=== PATIENT | male | born 1975 | race American Indian/Alaskan Native ===

== ENCOUNTER 2019-04-04 13:43 | Inpatient (IN) | payer SELFPAY ==
[2019-04-04] MEDS ORDERED: NACL 0.9% 1000 ML 1,000 ML IV ONE (13:48)
[2019-04-04] MEDS ORDERED: REGLAN IV ONE (13:48)
--- NOTE | 2019-04-04 13:52 | Event Note ---
ED Screening Note Date of service: 04/04/19 Time: 13:48 ED Screening Note: 44 y o male presents with n/v /d todays drank yesterday from tailgating This initial assessment/diagnostic orders/clinical plan/treatment(s) is/are subject to change based on patients health status, clinical progression and re- assessment by fellow clinical providers in the ED. Further treatment and workup at subsequent clinical providers discretion. Patient/guardian urged not to elope from the ED as their condition may be serious if not clinically assessed and managed. Initial orders include: labs, ua
[2019-04-04] MEDS ORDERED: BENTYL IM ONE (14:00)
[2019-04-04] MEDS ORDERED: PEPCID IV ONE (14:00)
[2019-04-04 14:16] LABS: Hemoglobin 16.1 gm/dl (11.8-15.2); Mean Corpuscular HGB Conc 34 % (32-34); Mean Corpuscular Volume 87 fl (84-94); Platelet Count 189 K/mm3 (140-440); Red Blood Count 5.39 M/mm3 (3.65-5.03); Red Cell Distribution Width 13.9 % (13.2-15.2)
[2019-04-04 14:24] LABS: Bilirubin,Urine NEG (Negative); Blood,Urine NEG (Negative); Color,Urine Yellow (Yellow); Mucus,Urine FEW /HPF
[2019-04-04 14:30] LABS: Alanine Aminotransferase 38 units/L (7-56); Albumin 4.4 g/dL (3.9-5); BUN/Creatinine Ratio 12; Blood Urea Nitrogen 11 mg/dL (9-20); Calcium 9.4 mg/dL (8.4-10.2); Hemolysis Index 10
[2019-04-04 14:48] LABS: Band Neutrophils # (Manual) 0.6 K/mm3; Total Cells Counted 100
[2019-04-04 14:49] LABS: Anisocytosis Few; Basophils % (Manual) 0 % (0.0-1.8); Eosinophils % (Manual) 0 % (0.0-4.3)
--- NOTE | 2019-04-04 16:00 | Cat Scan Report ---
CT abdomen pelvis w con INDICATION: MAIN: R sided abd pain NVD X 2 DAYS ISOVUE 300 100ML PT UNABLE TO HOLD STILL . TECHNIQUE: All CT scans at this location are performed using CT dose reduction for ALARA by means of automated e xposure control. COMPARISON: None available. FINDINGS: Lung bases are clear. Gallbladder is moderately distended. Motion artifact obscures the neck, so I ca nnot exclude a small stone in this region. Questionable calculus in the fundus. There is definitely p ericholecystic edema. Liver, spleen, pancreas, kidneys and adrenals appear negative. Abdominal aorta is normal in size. Pelvis No free fluid or inflammatory change. No abnormal mass. Appendix cannot be identified. No acute skeletal lesions. IMPRESSION: Pericholecystic edema suggests cholecystitis, although gallstones are not clearly identified. Signer Name: Eusebio Hinojosa MD Signed: 04/04/2019 3:56 PM Workstation Name: [id number]
[2019-04-04] MEDS ORDERED: ZOSYN/NS 4.5GM/100ML 4.5 GM/100 ML VIAL IV ONE (16:11)
[2019-04-04] MEDS ORDERED: MORPHINE IV ONE (16:23)
--- NOTE | 2019-04-04 16:41 | Emergency Department Report ---
ED Abdominal Pain HPI - General Chief Complaint: Abdominal Pain Stated Complaint: STOMACH PAIN EXTREME Time Seen by Provider: 04/04/19 13:47 Source: patient Mode of arrival: Ambulatory Limitations: No Limitations - History of Present Illness Initial Comments: Patient is a 44 roughneck male who has a clean past medical history who states he started developing some severe right lower and right upper quadrant pain last night. Patient had multiple episodes of nausea vomiting and had one episode of diarrhea today. Patient states he has not had a subjective fever but has had some diaphoresis. Patient also had chills overnight. Patient states the pain is 10 out of 10 in severity and crampy in nature. Migration to: no migration Severity scale (0 -10): 7 - Related Data Allergies Allergy/AdvReac Type Severity Reaction Status Date / Time No Known Allergies Allergy Unverified 04/04/19 13:45 ED Review of Systems ROS: Stated complaint: STOMACH PAIN EXTREME Other details as noted in HPI Comment: All other systems reviewed and negative ED Past Medical Hx - Past Medical History Previous Medical History?: No - Surgical History Past Surgical History?: No - Social History Smoking Status: Current Every Day Smoker Substance Use Type: Alcohol ED Physical Exam - General Limitations: No Limitations General appearance: alert, in distress - Head Head exam: Present: atraumatic, normocephalic - Eye Eye exam: Present: normal appearance, PERRL, EOMI - ENT ENT exam: Present: mucous membranes moist - Neck Neck exam: Present: normal inspection - Respiratory Respiratory exam: Present: normal lung sounds bilaterally. Absent: respiratory distress, wheezes, rales, rhonchi - Cardiovascular Cardiovascular Exam: Present: regular rate, normal rhythm. Absent: systolic murmur, diastolic murmur, rubs, gallop - GI/Abdominal GI/Abdominal exam: Present: soft, tenderness (right upper and right lower quadrant), guarding, diminished bowel sounds. Absent: distended, rebound, rigid - Rectal Rectal exam: Present: deferred - Extremities Exam Extremities exam: Present: normal inspection - Back Exam Back exam: Present: normal inspection - Neurological Exam Neurological exam: Present: alert, oriented X3 - Psychiatric Psychiatric exam: Present: normal affect, normal mood - Skin Skin exam: Present: warm, dry, intact, normal color. Absent: rash ED Course Vital Signs 04/04/19 04/04/19 13:45 16:36 Temperature 98.4 F Pulse Rate 82 Respiratory 16 16 Rate Blood Pressure 119/53 O2 Sat by Pulse 100 Oximetry ED Medical Decision Making - Lab Data Result diagrams: 04/04/19 13:56 04/04/19 13:56 - Radiology Data Patient: GORDO BRIZUELA MR#: [id number] : 1975 Acct:[id number] Age/Sex: 44 / M ADM Date: 04/04/19 Loc: ED Attending Dr: Ordering Physician: AVILA MAYFIELD MD Date of Service: 04/04/19 Procedure(s): CT abdomen pelvis w con Accession Number(s): [id number] cc: AVILA MAYFIELD MD CT abdomen pelvis w con INDICATION: MAIN: R sided abd pain NVD X 2 DAYS ISOVUE 300 100ML PT UNABLE TO HOLD STILL . TECHNIQUE: All CT scans at this location are performed using CT dose reduction for ALARA by means of automated exposure control. COMPARISON: None available. FINDINGS: Lung bases are clear. Gallbladder is moderately distended. Motion artifact obscures the neck, so I cannot exclude a small stone in this region. Questionable calculus in the fundus. There is definitely pericholecystic edema. Liver, spleen, pancreas, kidneys and adrenals appear negative. Abdominal aorta is normal in size. Pelvis No free fluid or inflammatory change. No abnormal mass. Appendix cannot be identified. No acute skeletal lesions. IMPRESSION: Pericholecystic edema suggests cholecystitis, although gallstones are not clearly identified. Signer Name: Eusebio Hinojosa MD Signed: 04/04/2019 3:56 PM Workstation Name: [id number] Transcribed By: TM Dictated By: Eusebio Hinojosa MD Electronically Authenticated By: Eusebio Hinojosa MD Signed Date/Time: 04/04/19 8449 - Medical Decision Making Spoke with regarding the patient's CT findings. We both agree that doing ultrasound would be of benefit to determine the next course of action for this patient. Patient started on Zosyn and will be admitted to the hospitalist service. Patient's pain has improved as well as his nausea. Critical care attestation.: If time is entered above; I have spent that time in minutes in the direct care of this critically ill patient, excluding procedure time. ED Disposition Clinical Impression: Cholecystitis Disposition: OP ADMIT IP TO THIS HOSP Is pt being admited?: Yes Does the pt Need Aspirin: No Condition: Stable Referrals: PRIMARY CARE, [Primary Care Provider] - 3-5 Days Time of Disposition: 16:41
[2019-04-04] MEDS ORDERED: NACL 0.9% 1000 ML 1,000 ML IV SCH (17:00)
--- NOTE | 2019-04-04 19:15 | Ultrasound Report ---
ULTRASOUND ABDOMEN, LIMITED (RIGHT UPPER QUADRANT), 04/04/2019 INDICATION: Right upper quadrant pain. COMPARISON: CT of the abdomen and pelvis, 04/04/2019 FINDINGS: Pancreas: Visualized portion shows no significant abnormality. Liver: The liver appears grossly normal in size and echogenicity. Gallbladder: The gallbladder is mildly distended. There is a subtle hypoechoic rim surrounding the ga llbladder suggestive of possible gallbladder wall edema. The gallbladder measures a maximum thickness of 3 mm. The common bile duct is normal in caliber measuring less than 2 mm. There are 2 small stone s within the neck of the gallbladder the largest of which measures 9 mm. Free fluid: None. Additional Findings: None. IMPRESSION: 1. Two small gallstones. 2. Gallbladder distention with suspected subtle gallbladder wall edema suggesting the possibility of cholecystitis. Signer Name: Lavonne Alaniz MD Signed: 04/04/2019 7:10 PM Workstation Name: [id number]
[2019-04-04] MEDS ORDERED: ZOFRAN IV PRN (22:22)
[2019-04-04] MEDS ORDERED: REGLAN IV PRN (22:22)
--- NOTE | 2019-04-04 22:25 | History and Physical Report ---
History of Present Illness Date of examination: 04/04/19 Date of admission: 04/04/19 16:43 Chief complaint: RUQ pain for 1 day History of present illness: 44 y/o AAM male with no significant past medical history started developing some severe right lower and right upper quadrant pain last night. Patient had multiple episodes of nausea vomiting and had one episode of diarrhea today. Patient states he has not had a subjective fever but has had some diaphoresis. Patient also had chills overnight. Patient states the pain is 10 out of 10 in severity and crampy in nature.No exacerbating or relieving factors. Past Medical History None Surgical History None Social History Smoking Status: Current Every Day Smoker Substance Use Type: Alcohol Family history Htn Review of Systems ROS: Stated complaint: STOMACH PAIN EXTREME Other details as noted in HPI Comment: All other systems reviewed and negative Medications and Allergies Allergies Allergy/AdvReac Type Severity Reaction Status Date / Time No Known Allergies Allergy Unverified 04/04/19 13:45 Home Medications Medication Instructions Recorded Confirmed Last Taken Type No Known Home Medications [No 04/04/19 04/04/19 Unknown History Reported Home Medications] Active Meds: Active Medications Sodium Chloride (Nacl 0.9% 1000 Ml) 1,000 mls @ 125 mls/hr IV DIRECT YAMILA Exam - Constitutional Vitals: Temp Pulse Resp BP Pulse Ox 99.7 F H 76 18 112/69 99 04/04/19 19:45 04/04/19 19:45 04/04/19 19:45 04/04/19 19:45 04/04/19 19:45 General appearance: Present: no acute distress, well-nourished - EENT Eyes: Present: PERRL ENT: hearing intact, clear oral mucosa - Neck Neck: Present: supple, normal ROM - Respiratory Respiratory effort: normal Respiratory: bilateral: CTA - Cardiovascular Heart rate: 78 Rhythm: regular Heart Sounds: Present: S1 & S2. Absent: rub, click - Extremities Extremities: no ischemia, pulses symmetrical, No edema Peripheral Pulses: within normal limits - Abdominal General gastrointestinal: Present: soft, tender, non-distended, normal bowel sounds Localized gastrointestinal: tender: RUQ, guarding: RUQ, rebound: RUQ Male genitourinary: Present: normal - Rectal Rectal Exam: deferred - Integumentary Integumentary: Present: clear, warm, dry - Musculoskeletal Musculoskeletal: gait normal, strength equal bilaterally - Psychiatric Psychiatric: appropriate mood/affect, intact judgment & insight - Neurologic Neurologic: CNII-XII intact, moves all extremities - Allied Health Allied health notes reviewed: nursing, case management Results - Labs CBC & Chem 7: 04/05/19 04:10 04/05/19 Unknown Labs: Laboratory Last Values WBC 11.8 K/mm3 (4.5-11.0) H 04/04/19 13:56 RBC 5.39 M/mm3 (3.65-5.03) H 04/04/19 13:56 Hgb 16.1 gm/dl (11.8-15.2) H 04/04/19 13:56 Hct 47.0 % (35.5-45.6) H 04/04/19 13:56 MCV 87 fl (84-94) 04/04/19 13:56 MCH 30 pg (28-32) 04/04/19 13:56 MCHC 34 % (32-34) 04/04/19 13:56 RDW 13.9 % (13.2-15.2) 04/04/19 13:56 Plt Count 189 K/mm3 (140-440) 04/04/19 13:56 Add Manual Diff Complete 04/04/19 13:56 Total Counted 100 04/04/19 13:56 Seg Neutrophils % [employer] 04/04/19 13:56 Seg Neuts % (Manual) 84.0 % (40.0-70.0) H 04/04/19 13:56 5.0 % 04/04/19 13:56 7.0 % (13.4-35.0) L 04/04/19 13:56 Reactive Lymphs % (Man) 0 % 04/04/19 13:56 4.0 % (0.0-7.3) 04/04/19 13:56 0 % (0.0-4.3) 04/04/19 13:56 0 % (0.0-1.8) 04/04/19 13:56 0 % 04/04/19 13:56 0 % 04/04/19 13:56 0 % 04/04/19 13:56 0 % 04/04/19 13:56 Nucleated RBC % Not Reportable 04/04/19 13:56 Seg Neutrophils # Man 9.9 K/mm3 (1.8-7.7) H 04/04/19 13:56 Band Neutrophils # 0.6 K/mm3 04/04/19 13:56 0.8 K/mm3 (1.2-5.4) L 04/04/19 13:56 Abs React Lymphs (Man) 0.0 K/mm3 04/04/19 13:56 0.5 K/mm3 (0.0-0.8) 04/04/19 13:56 0.0 K/mm3 (0.0-0.4) 04/04/19 13:56 0.0 K/mm3 (0.0-0.1) 04/04/19 13:56 0.0 K/mm3 04/04/19 13:56 0.0 K/mm3 04/04/19 13:56 0.0 K/mm3 04/04/19 13:56 Blast Cells # 0.0 K/mm3 04/04/19 13:56 WBC Morphology Not Reportable 04/04/19 13:56 WBC Morphology TNR 04/04/19 13:56 Hypersegmented Neuts Not Reportable 04/04/19 13:56 Hyposegmented Neuts Not Reportable 04/04/19 13:56 Hypogranular Neuts Not Reportable 04/04/19 13:56 Not Reportable 04/04/19 13:56 Not Reportable 04/04/19 13:56 Not Reportable 04/04/19 13:56 Not Reportable 04/04/19 13:56 Not Reportable 04/04/19 13:56 Not Reportable 04/04/19 13:56 Not Reportable 04/04/19 13:56 Not Reportable 04/04/19 13:56 Plt Clumps, EDTA Not Reportable 04/04/19 13:56 Not Reportable 04/04/19 13:56 Not Reportable 04/04/19 13:56 Not Reportable 04/04/19 13:56 Plt Morphology Comment Not Reportable 04/04/19 13:56 RBC Morphology Not Reportable 04/04/19 13:56 Dimorphic RBCs Not Reportable 04/04/19 13:56 Not Reportable 04/04/19 13:56 Not Reportable 04/04/19 13:56 Not Reportable 04/04/19 13:56 Few 04/04/19 13:56 Not Reportable 04/04/19 13:56 Not Reportable 04/04/19 13:56 Not Reportable 04/04/19 13:56 Not Reportable 04/04/19 13:56 Not Reportable 04/04/19 13:56 Not Reportable 04/04/19 13:56 Not Reportable 04/04/19 13:56 Not Reportable 04/04/19 13:56 Not Reportable 04/04/19 13:56 Not Reportable 04/04/19 13:56 Not Reportable 04/04/19 13:56 Not Reportable 04/04/19 13:56 Not Reportable 04/04/19 13:56 Not Reportable 04/04/19 13:56 Not Reportable 04/04/19 13:56 Acanthocytes (Spur) Not Reportable 04/04/19 13:56 Rouleaux Not Reportable 04/04/19 13:56 Not Reportable 04/04/19 13:56 Not Reportable 04/04/19 13:56 Not Reportable 04/04/19 13:56 Not Reportable 04/04/19 13:56 Hem Pathologist Commnt No 04/04/19 13:56 Sodium 138 mmol/L (137-145) 04/04/19 13:56 Potassium 3.9 mmol/L (3.6-5.0) 04/04/19 13:56 Chloride 98.2 mmol/L (98-107) 04/04/19 13:56 Carbon Dioxide 25 mmol/L (22-30) 04/04/19 13:56 19 mmol/L 04/04/19 13:56 BUN 11 mg/dL (9-20) 04/04/19 13:56 0.9 mg/dL (0.8-1.5) 04/04/19 13:56 Estimated GFR > 60 ml/min 04/04/19 13:56 12 % 04/04/19 13:56 Glucose 119 mg/dL (75-100) H 04/04/19 13:56 Calcium 9.4 mg/dL (8.4-10.2) 04/04/19 13:56 0.80 mg/dL (0.1-1.2) 04/04/19 13:56 AST 43 units/L (5-40) H 04/04/19 13:56 ALT 38 units/L (7-56) 04/04/19 13:56 78 units/L (35-129) 04/04/19 13:56 7.4 g/dL (6.3-8.2) 04/04/19 13:56 4.4 g/dL (3.9-5) 04/04/19 13:56 1.5 % 04/04/19 13:56 Amylase 66 units/L (27-131) 04/04/19 13:56 22 units/L (13-60) 04/04/19 13:56 Yellow (Yellow) 04/04/19 13:56 Clear (Clear) 04/04/19 13:56 9.0 (5.0-7.0) H 04/04/19 13:56 Ur Specific [place] 1.024 (1.003-1.030) 04/04/19 13:56 100 mg/dl mg/dL (Negative) 04/04/19 13:56 Neg mg/dL (Negative) 04/04/19 13:56 80 mg/dL (Negative) 04/04/19 13:56 Neg (Negative) 04/04/19 13:56 Neg (Negative) 04/04/19 13:56 Neg (Negative) 04/04/19 13:56 2.0 mg/dL (<2.0) 04/04/19 13:56 Ur Leukocyte Esterase Neg (Negative) 04/04/19 13:56 1.0 /HPF (0.0-6.0) 04/04/19 13:56 6.0 /HPF (0.0-6.0) 04/04/19 13:56 U Epithel Cells (Auto) < 1.0 /HPF (0-13.0) 04/04/19 13:56 Few /HPF 04/04/19 13:56 Plasma/Serum Alcohol < 0.01 % (0-0.07) 04/04/19 13:56 - Imaging and Cardiology EKG: report reviewed CT scan - abdomen: report reviewed Imaging and Cardiology: ABD CT IMPRESSION: Pericholecystic edema suggests cholecystitis, although gallstones are not clearly identified. RUQ U/S IMPRESSION: 1. Two small gallstones. 2. Gallbladder distention with suspected subtle gallbladder wall edema suggesting the possibility of cholecystitis Assessment and Plan Advance Directives: Yes (Full code ) VTE prophylaxis?: Chemical Plan of care discussed with patient/family: Yes - Patient Problems (1) Cholecystitis Current Visit: Yes Status: Acute Plan to address problem: Surgery consult requested IV zosyn initiated Pain control initiated (2) Nicotine dependence Current Visit: Yes Status: Chronic Qualifiers: Nicotine product type: cigarettes Plan to address problem: Initiated on Nicoderm patch Counselled about cessation of smoking (3) DVT prophylaxis Current Visit: Yes Status: Acute Plan to address problem: On SCD's and GI prophylaxis
[2019-04-04] MEDS: PEPCID IV SCH (23:20)
[2019-04-04] MEDS: D5NS 1,000 ML IV SCH (23:29)
[2019-04-04] MEDS: ZOSYN/NS 4.5GM/100ML 4.5 GM/100 ML VIAL IV SCH (23:29)
[2019-04-04] MEDS: DILAUDID IV PRN (23:47)
[2019-04-04] MEDS: TYLENOL PO PRN (23:56)
[2019-04-05] MEDS: DILAUDID IV PRN ×5 (04:26→21:14)
[2019-04-05 04:38] LABS: Basophils # (Auto) 0.1 K/mm3 (0.0-0.1); Basophils % (Auto) 0.8 % (0.0-1.8); Eosinophils % (Auto) 0.3 % (0.0-4.3); Hematocrit 44.7 % (35.5-45.6); Hemoglobin 14.9 gm/dl (11.8-15.2); Lymphocytes # (Auto) 1.2 K/mm3 (1.2-5.4); Lymphocytes % (Auto) 10.1 % (13.4-35.0); Mean Corpuscular HGB Conc 33 % (32-34); Mean Corpuscular Volume 88 fl (84-94); Monocytes # (Auto) 0.8 K/mm3 (0.0-0.8); Monocytes % (Auto) 6.6 % (0.0-7.3); Platelet Count 172 K/mm3 (140-440); Red Blood Count 5.07 M/mm3 (3.65-5.03); Red Cell Distribution Width 14.1 % (13.2-15.2)
[2019-04-05 04:52] LABS: Alanine Aminotransferase 33 units/L (7-56); Albumin 3.9 g/dL (3.9-5); BUN/Creatinine Ratio 11; Blood Urea Nitrogen 11 mg/dL (9-20); Hemolysis Index 8
[2019-04-05] MEDS: ZOSYN/NS 4.5GM/100ML 4.5 GM/100 ML VIAL IV SCH ×2 (08:55→16:39)
[2019-04-05] MEDS: PEPCID IV SCH ×2 (10:39→21:14)
--- NOTE | 2019-04-05 11:28 | Progress Note ---
Assessment and Plan Assessment and plan: 44-year-old man who presents to the hospital with right upper quadrant pain CT abdomen and pelvis 2 small gallstones with subtotal gallbladder wall edema concerning for cholecystitis Abdominal pain, possible cholecystitis Discussed with general surgeon, patient plan for HIDA scan in a.m. Nicotine dependence and abuse Smoking cessation counseling performed for 11 minutes, nicotine patches as needed Preventive health counseling performed for 17 minutes for History Interval history: Right upper quadrant pain is improved, patient reports feeling hot. Denies fevers. Denies chest pain. Denies nausea or vomiting. Hospitalist Physical - Physical exam Narrative exam: General.: Appears well, no distress, nontoxic HEENT: Moist mucous membranes, extraocular muscles intact, no lymphadenopathy Neck: supple Cardiac: S1-S2 heard Lungs: clear to auscultation bilaterally Abdomen: soft right upper quadrant tender, nondistended, bowel sounds positive Extremities: no edema clubbing or cyanosis Skin: no rash or lesions Neurologic: no gross focal deficits Psych: calm, and cooperative - Constitutional Vitals: Temp Pulse Resp BP Pulse Ox 99.8 F H 72 18 109/68 98 04/05/19 07:06 04/05/19 07:06 04/05/19 07:06 04/05/19 07:06 04/05/19 07:06 General appearance: Present: no acute distress, well-nourished Results - Labs CBC & Chem 7: 04/05/19 04:10 04/05/19 Unknown Labs: Laboratory Last Values WBC 12.3 K/mm3 (4.5-11.0) H 04/05/19 04:10 RBC 5.07 M/mm3 (3.65-5.03) H 04/05/19 04:10 Hgb 14.9 gm/dl (11.8-15.2) 04/05/19 04:10 Hct 44.7 % (35.5-45.6) 04/05/19 04:10 MCV 88 fl (84-94) 04/05/19 04:10 MCH 29 pg (28-32) 04/05/19 04:10 MCHC 33 % (32-34) 04/05/19 04:10 RDW 14.1 % (13.2-15.2) 04/05/19 04:10 Plt Count 172 K/mm3 (140-440) 04/05/19 04:10 Lymph % (Auto) 10.1 % (13.4-35.0) L 04/05/19 04:10 [place] % (Auto) 6.6 % (0.0-7.3) 04/05/19 04:10 Eos % (Auto) 0.3 % (0.0-4.3) 04/05/19 04:10 Baso % (Auto) 0.8 % (0.0-1.8) 04/05/19 04:10 Lymph # 1.2 K/mm3 (1.2-5.4) 04/05/19 04:10 [place] # 0.8 K/mm3 (0.0-0.8) 04/05/19 04:10 Eos # 0.0 K/mm3 (0.0-0.4) 04/05/19 04:10 Baso # 0.1 K/mm3 (0.0-0.1) 04/05/19 04:10 Add Manual Diff Complete 04/04/19 13:56 Total Counted 100 04/04/19 13:56 Seg Neutrophils % 82.2 % (40.0-70.0) H 04/05/19 04:10 Seg Neuts % (Manual) 84.0 % (40.0-70.0) H 04/04/19 13:56 5.0 % 04/04/19 13:56 7.0 % (13.4-35.0) L 04/04/19 13:56 Reactive Lymphs % (Man) 0 % 04/04/19 13:56 4.0 % (0.0-7.3) 04/04/19 13:56 0 % (0.0-4.3) 04/04/19 13:56 0 % (0.0-1.8) 04/04/19 13:56 0 % 04/04/19 13:56 0 % 04/04/19 13:56 0 % 04/04/19 13:56 0 % 04/04/19 13:56 Nucleated RBC % Not Reportable 04/04/19 13:56 Seg Neutrophils # 10.1 K/mm3 (1.8-7.7) H 04/05/19 04:10 Seg Neutrophils # Man 9.9 K/mm3 (1.8-7.7) H 04/04/19 13:56 Band Neutrophils # 0.6 K/mm3 04/04/19 13:56 0.8 K/mm3 (1.2-5.4) L 04/04/19 13:56 Abs React Lymphs (Man) 0.0 K/mm3 04/04/19 13:56 0.5 K/mm3 (0.0-0.8) 04/04/19 13:56 0.0 K/mm3 (0.0-0.4) 04/04/19 13:56 0.0 K/mm3 (0.0-0.1) 04/04/19 13:56 0.0 K/mm3 04/04/19 13:56 0.0 K/mm3 04/04/19 13:56 0.0 K/mm3 04/04/19 13:56 Blast Cells # 0.0 K/mm3 04/04/19 13:56 WBC Morphology Not Reportable 04/04/19 13:56 WBC Morphology TNR 04/04/19 13:56 Hypersegmented Neuts Not Reportable 04/04/19 13:56 Hyposegmented Neuts Not Reportable 04/04/19 13:56 Hypogranular Neuts Not Reportable 04/04/19 13:56 Not Reportable 04/04/19 13:56 Not Reportable 04/04/19 13:56 Not Reportable 04/04/19 13:56 Not Reportable 04/04/19 13:56 Not Reportable 04/04/19 13:56 Not Reportable 04/04/19 13:56 Not Reportable 04/04/19 13:56 Not Reportable 04/04/19 13:56 Plt Clumps, EDTA Not Reportable 04/04/19 13:56 Not Reportable 04/04/19 13:56 Not Reportable 04/04/19 13:56 Not Reportable 04/04/19 13:56 Plt Morphology Comment Not Reportable 04/04/19 13:56 RBC Morphology Not Reportable 04/04/19 13:56 Dimorphic RBCs Not Reportable 04/04/19 13:56 Not Reportable 04/04/19 13:56 Not Reportable 04/04/19 13:56 Not Reportable 04/04/19 13:56 Few 04/04/19 13:56 Not Reportable 04/04/19 13:56 Not Reportable 04/04/19 13:56 Not Reportable 04/04/19 13:56 Not Reportable 04/04/19 13:56 Not Reportable 04/04/19 13:56 Not Reportable 04/04/19 13:56 Not Reportable 04/04/19 13:56 Not Reportable 04/04/19 13:56 Not Reportable 04/04/19 13:56 Not Reportable 04/04/19 13:56 Not Reportable 04/04/19 13:56 Not Reportable 04/04/19 13:56 Not Reportable 04/04/19 13:56 Not Reportable 04/04/19 13:56 Not Reportable 04/04/19 13:56 Acanthocytes (Spur) Not Reportable 04/04/19 13:56 Rouleaux Not Reportable 04/04/19 13:56 Not Reportable 04/04/19 13:56 Not Reportable 04/04/19 13:56 Not Reportable 04/04/19 13:56 Not Reportable 04/04/19 13:56 Hem Pathologist Commnt No 04/04/19 13:56 Sodium 140 mmol/L (137-145) 04/05/19 Unknown Potassium 4.5 mmol/L (3.6-5.0) 04/05/19 Unknown Chloride 100.8 mmol/L (98-107) 04/05/19 Unknown Carbon Dioxide 29 mmol/L (22-30) 04/05/19 Unknown 15 mmol/L 04/05/19 Unknown BUN 11 mg/dL (9-20) 04/05/19 Unknown 1.0 mg/dL (0.8-1.5) 04/05/19 Unknown Estimated GFR > 60 ml/min 04/05/19 Unknown 11 % 04/05/19 Unknown Glucose 123 mg/dL (75-100) H 04/05/19 Unknown 5.4 % (4-6) 04/05/19 04:10 Calcium 9.0 mg/dL (8.4-10.2) 04/05/19 Unknown 0.90 mg/dL (0.1-1.2) 04/05/19 Unknown AST 39 units/L (5-40) 04/05/19 Unknown ALT 33 units/L (7-56) 04/05/19 Unknown 76 units/L (35-129) 04/05/19 Unknown 6.8 g/dL (6.3-8.2) 04/05/19 Unknown 3.9 g/dL (3.9-5) 04/05/19 Unknown 1.3 % 04/05/19 Unknown Amylase 66 units/L (27-131) 04/04/19 13:56 22 units/L (13-60) 04/04/19 13:56 Yellow (Yellow) 04/04/19 13:56 Clear (Clear) 04/04/19 13:56 9.0 (5.0-7.0) H 04/04/19 13:56 Ur Specific [place] 1.024 (1.003-1.030) 04/04/19 13:56 100 mg/dl mg/dL (Negative) 04/04/19 13:56 Neg mg/dL (Negative) 04/04/19 13:56 80 mg/dL (Negative) 04/04/19 13:56 Neg (Negative) 04/04/19 13:56 Neg (Negative) 04/04/19 13:56 Neg (Negative) 04/04/19 13:56 2.0 mg/dL (<2.0) 04/04/19 13:56 Ur Leukocyte Esterase Neg (Negative) 04/04/19 13:56 1.0 /HPF (0.0-6.0) 04/04/19 13:56 6.0 /HPF (0.0-6.0) 04/04/19 13:56 U Epithel Cells (Auto) < 1.0 /HPF (0-13.0) 04/04/19 13:56 Few /HPF 04/04/19 13:56 Plasma/Serum Alcohol < 0.01 % (0-0.07) 04/04/19 13:56 Active Medications - Current Medications Current Medications: Generic Name Dose Route Start Last Admin Trade Name Freq PRN Reason Stop Dose Admin Acetaminophen 650 mg 04/04/19 22:22 04/04/19 23:56 Tylenol PO 650 mg Q4H PRN Administration Pain MILD(1-3)/Fever >100.5/ESPINOZA Famotidine 20 mg 04/04/19 23:00 04/04/19 23:20 Pepcid IV 20 mg BID YAMILA Administration Hydromorphone HCl 1 mg 04/04/19 22:22 04/05/19 08:53 Dilaudid IV 1 mg Q3H PRN Administration Pain , Severe (7-10) Dextrose/Sodium Chloride 1,000 mls @ 75 mls/hr 04/04/19 23:00 04/04/19 23:29 D5ns IV 75 mls/hr DIRECT YAMILA Administration Piperacillin Sod/Tazobactam Sod 4.5 gm in 100 mls @ 200 mls/hr 04/05/19 00:00 04/05/19 08:55 Zosyn/Ns 4.5gm/100ml IV 200 mls/hr Q8H YAMILA Administration Protocol Metoclopramide HCl 10 mg 04/04/19 22:22 04/05/19 04:25 Reglan IV 10 mg Q6H PRN Administration Nausea And Vomiting Ondansetron HCl 4 mg 04/04/19 22:22 04/04/19 23:46 Zofran IV 4 mg Q3H PRN Administration Nausea And Vomiting Sodium Chloride 10 ml 04/05/19 10:00 Sodium Chloride Flush Syringe 10 Ml IV BID YAMILA Sodium Chloride 10 ml 04/04/19 22:22 Sodium Chloride Flush Syringe 10 Ml IV PRN PRN LINE FLUSH
[2019-04-05] MEDS: HABITROL TD SCH (11:56)
--- NOTE | 2019-04-05 13:11 | Progress Note ---
Assessment and Plan Full consult dictated: 44 y/o alcoholic male c/o RUQ and RLQ abd pain x 3 days. +N&V Abd - RUQ and R flank tenderness GB US & CT report as below. also ascites noted on review with radiologist US IMPRESSION: 1. Two small gallstones. 2. Gallbladder distention with suspected subtle gallbladder wall edema suggesting the possibility of cholecystitis. CT IMPRESSION: Pericholecystic edema suggests cholecystitis, although gallstones are not clearly identified. imp - r/o cholecystitis alcoholic ascites secondary to ? rec NPO IV Levaquin will attempt to reduce inflammation with IV antibiotic Rx prior to attempting lap GB to reduce possibility of having to convert to open GB and reduce complication rates. f/u labs in am Laboratory Tests 04/04/19 04/05/19 04/05/19 13:56 04:10 Unknown WBC 12.3 H Total Bilirubin 0.90 AST 39 ALT 33 Alkaline Phosphatase 76 Amylase 66 Lipase 22 Objective Vital Signs - 12hr 04/05/19 04/05/19 04/05/19 04:50 04:51 07:06 Temperature 99.4 F 99.8 F H Pulse Rate 75 72 Respiratory 20 18 Rate Blood Pressure 95/56 109/68 O2 Sat by Pulse 94 98 Oximetry 04/05/19 11:14 Temperature 97.3 F L Pulse Rate 81 Respiratory 18 Rate Blood Pressure 114/73 O2 Sat by Pulse 87 Oximetry - Labs 04/05/19 04:10 04/05/19 Unknown Diabetes panel 04/04/19 04/05/19 04/05/19 Range/Units 13:56 04:10 Unknown Sodium 138 140 (137-145) mmol/L Potassium 3.9 4.5 (3.6-5.0) mmol/L Chloride 98.2 100.8 (98-107) mmol/L Carbon Dioxide 25 29 (22-30) mmol/L BUN 11 11 (9-20) mg/dL Creatinine 0.9 1.0 (0.8-1.5) mg/dL Glucose 119 H 123 H (75-100) mg/dL Hemoglobin A1c 5.4 (4-6) % Calcium 9.4 9.0 (8.4-10.2) mg/dL AST 43 H 39 (5-40) units/L ALT 38 33 (7-56) units/L Alkaline Phosphatase 78 76 (35-129) units/L Total Protein 7.4 6.8 (6.3-8.2) g/dL Albumin 4.4 3.9 (3.9-5) g/dL Calcium panel 04/04/19 04/05/19 Range/Units 13:56 Unknown Calcium 9.4 9.0 (8.4-10.2) mg/dL Albumin 4.4 3.9 (3.9-5) g/dL Pituitary panel 04/04/19 04/05/19 Range/Units 13:56 Unknown Sodium 138 140 (137-145) mmol/L Potassium 3.9 4.5 (3.6-5.0) mmol/L Chloride 98.2 100.8 (98-107) mmol/L Carbon Dioxide 25 29 (22-30) mmol/L BUN 11 11 (9-20) mg/dL Creatinine 0.9 1.0 (0.8-1.5) mg/dL Glucose 119 H 123 H (75-100) mg/dL Calcium 9.4 9.0 (8.4-10.2) mg/dL Adrenal panel 04/04/19 04/05/19 Range/Units 13:56 Unknown Sodium 138 140 (137-145) mmol/L Potassium 3.9 4.5 (3.6-5.0) mmol/L Chloride 98.2 100.8 (98-107) mmol/L Carbon Dioxide 25 29 (22-30) mmol/L BUN 11 11 (9-20) mg/dL Creatinine 0.9 1.0 (0.8-1.5) mg/dL Glucose 119 H 123 H (75-100) mg/dL Calcium 9.4 9.0 (8.4-10.2) mg/dL Total Bilirubin 0.80 0.90 (0.1-1.2) mg/dL AST 43 H 39 (5-40) units/L ALT 38 33 (7-56) units/L Alkaline Phosphatase 78 76 (35-129) units/L Total Protein 7.4 6.8 (6.3-8.2) g/dL Albumin 4.4 3.9 (3.9-5) g/dL
[2019-04-05] MEDS: LEVAQUIN 500MG/100ML 500 MG/100 ML BAG IV SCH (14:37)
[2019-04-05] MEDS ORDERED: ATIVAN PO PRN (17:08)
[2019-04-05] MEDS ORDERED: ATIVAN IV PRN ×2 (17:08)
--- NOTE | 2019-04-06 00:39 | Consultation ---
REASON FOR CONSULTATION: Rule out acute cholecystitis. HISTORY OF PRESENT ILLNESS: The patient is a 44-year-old gentleman who was admitted to the Emergency Room with a recent onset of right upper quadrant as well as right lower quadrant abdominal pain, which the patient describes, has been going on for approximately 3 days. Also, has had episodes of nausea and vomiting. PAST MEDICAL HISTORY: Negative. PAST SURGICAL HISTORY: Negative. ALLERGIES: No known allergies. MEDICATIONS: No medications. FAMILY HISTORY: Negative. SOCIAL HISTORY: Admits to drinking daily. Also, smokes a pack a day for approximately 30 years. PHYSICAL EXAMINATION: GENERAL: At this time reveals the patient to be sitting by bedside, awake, alert, cooperative, in no acute distress. VITAL SIGNS: Show him to be afebrile with a temperature of 97.3, blood pressure is 114/73, pulse of 81, respirations of 18. HEENT: Pupils are equal and reactive to light and accommodation. Sclerae are nonicteric. ABDOMEN: Examination of the abdomen reveals to be flat and soft. There is mild right upper quadrant tenderness as well as right lower quadrant and some flank tenderness, which is nonspecific. Bowel sounds are present. LABORATORY DATA: Lab work at present includes a CBC, which shows a white count of 12.3, H and H is 14.9 and 44.7. Electrolytes were essentially within normal limits. LFTs are also normal including a total bilirubin of 0.9, AST of 39, ALT of 33, alkaline phosphatase of 76. Amylase is normal at 66. Lipase is also normal at 22. A gallbladder ultrasound as well as CT of the abdomen, I have been performed, which I have reviewed with the radiologist. The CT scan revealed some pericholecystic edema suggestive of cholecystitis, although gallstones were not clearly identified. Subsequent gallbladder ultrasound revealed two questionable small gallstones. There is edema films with radiologist, there does appear to be some ascites and that may be the reason for the questionable fluid or edema around the gallbladder wall. IMPRESSION: 1. At this time is that of a 44-year-old gentleman, a known alcoholic. 2. Rule out acute cholecystitis. RECOMMENDATIONS: At this time would be to keep the patient n.p.o. We will start IV Levaquin. We will also order a HIDA scan to confirm if indeed patient does have acute cholecystitis or there is another intraabdominal process causing his symptomatology. We will monitor closely with you clinically. Also, we will repeat lab work in the morning. JOB# [id number] CLARK/DEAN
[2019-04-06] MEDS: ZOSYN/NS 4.5GM/100ML 4.5 GM/100 ML VIAL IV SCH ×3 (05:00→16:53)
[2019-04-06 06:09] LABS: Basophils % (Auto) 0.3 % (0.0-1.8); Eosinophils # (Auto) 0.1 K/mm3 (0.0-0.4); Eosinophils % (Auto) 0.4 % (0.0-4.3); Hematocrit 40.8 % (35.5-45.6); Hemoglobin 13.8 gm/dl (11.8-15.2); Lymphocytes # (Auto) 1.1 K/mm3 (1.2-5.4); Lymphocytes % (Auto) 7.5 % (13.4-35.0); Mean Corpuscular HGB Conc 34 % (32-34); Mean Corpuscular Volume 88 fl (84-94); Monocytes # (Auto) 1.2 K/mm3 (0.0-0.8); Platelet Count 157 K/mm3 (140-440); Red Blood Count 4.65 M/mm3 (3.65-5.03)
[2019-04-06] MEDS: TYLENOL PO PRN (06:14)
[2019-04-06] MEDS: SODIUM CHLORIDE FLUSH SYRINGE 10 ML IV PRN ×2 (06:17→22:08)
[2019-04-06 06:21] LABS: Alanine Aminotransferase 24 units/L (7-56); Albumin 3.4 g/dL (3.9-5); BUN/Creatinine Ratio 9; Blood Urea Nitrogen 8 mg/dL (9-20); Calcium 8.9 mg/dL (8.4-10.2); Hemolysis Index 5
[2019-04-06] MEDS: SODIUM CHLORIDE FLUSH SYRINGE 10 ML IV SCH ×2 (07:58→11:40)
--- NOTE | 2019-04-06 10:46 | Nuclear Medicine Report ---
NUCLEAR MEDICINE HEPATOBILIARY SCAN INDICATION: r/o acute GB. Right upper quadrant pain COMPARISON: Ultrasound and CT of the abdomen dated 04/04/2019. TECHNIQUE: Radiotracer: Tc-99m mebrofenin (by IV): 5 mCi. Gallbladder Stimulant: None. FINDINGS: Hepatic activity: Normal. Biliary activity: 5. Common bile duct activity at 10 minutes. Gallbladder activity: Not seen throughout 2 hours of imaging. Small bowel activity: Normal at 15 minutes. IMPRESSION: Nonvisualization of the gallbladder consistent with obstruction of the cystic duct.. Signer Name: Khoa Lew Jr, MD Signed: 04/06/2019 10:41 AM Workstation Name: [id number]
[2019-04-06] MEDS: DILAUDID IV PRN ×3 (11:27→22:07)
[2019-04-06] MEDS: PEPCID IV SCH ×2 (11:33→22:08)
[2019-04-06] MEDS: VITAMIN B-1 PO SCH (11:34)
[2019-04-06] MEDS: LEVAQUIN 500MG/100ML 500 MG/100 ML BAG IV SCH (11:35)
[2019-04-06] MEDS: FOLVITE PO SCH (11:35)
[2019-04-06] MEDS: HABITROL TD SCH (11:38)
[2019-04-06] MEDS: D5NS 1,000 ML IV SCH (11:40)
--- NOTE | 2019-04-06 12:48 | Event Note ---
Date: 04/06/19 Consulted for cholecystostomy tube. Discussed with Dr. Damon. The patient has no PMH, does have a history of alcohol consumption, and no CT or US evidence of complicated gallbladder. There is no indication for cholecystostomy tube. Cholecystostomy tube indications are due to the comorbidites of the patient, not the state of acute cholecystitis.
--- NOTE | 2019-04-06 12:54 | Progress Note ---
Assessment and Plan Assessment and plan: Patient is a 44 yo man with a history of tobacco dependency and alcohol abuse who presents with right upper abdominal pains. * CT abdomen and pelvis 2 small gallstones with subtotal gallbladder wall edema concerning for cholecystitis * HIDA scan, gb not visualized Abdominal pain, most likely Acute cholecystitis with Gallstones: Lap stanley is indicated before he gets septic or goes into alcohol withdrawals, continue IV abx, paged Dr. Damon, d/w IR, Dr. Bryant Nicotine dependence: aids counselor on cessation, nicotine patches as needed ETOH abuse: treat with CIWA protocol, aids counselor on stopping History Interval history: Patient was seen and examined. Follow-up on current diagnosis of Acute ch olecystitis. Overnight uneventful. Patient denies any chest pain, shortness breath, nausea/vomiting or severe headaches. Imaging, nursing note, chart, labs and old chart reviewed. Discussed with patient. Aunt at bedside Hospitalist Physical - Physical exam Narrative exam: Gen: WDWN, NAD, Awake, Alert, Orientated x 3 HEENT: NCAT, EOMI, PERRL, OP Clear Neck: supple, no adenopathy, no thyromegaly, no JVD CVS/Heart: RRR, normal S1S2, pulses present bilaterally Chest/Lungs: CTA B, Symmetrical chest expansion, good air entry bilaterally GI/Abdomen: not rigid, RUQ tenderness good bowel sounds, + guarding, rebound /Bladder: no suprapubic tenderness, no CVA or paraspinal tenderness Extermity/Skin: no c/c/e, no obvious rash MSK: FROM x 4 Neuro: CN 2-12 grossly intact, no new focal deficits Psych: calm - Constitutional Vitals: Temp Pulse Resp BP Pulse Ox 99.1 F 76 16 107/62 94 04/06/19 11:00 04/06/19 11:00 04/06/19 11:57 04/06/19 11:00 04/06/19 11:00 General appearance: Present: no acute distress, well-nourished Results - Labs CBC & Chem 7: 04/06/19 05:36 04/06/19 05:36 Labs: Laboratory Last Values WBC 15.1 K/mm3 (4.5-11.0) H 04/06/19 05:36 RBC 4.65 M/mm3 (3.65-5.03) 04/06/19 05:36 Hgb 13.8 gm/dl (11.8-15.2) 04/06/19 05:36 Hct 40.8 % (35.5-45.6) 04/06/19 05:36 MCV 88 fl (84-94) 04/06/19 05:36 MCH 30 pg (28-32) 04/06/19 05:36 MCHC 34 % (32-34) 04/06/19 05:36 RDW 14.0 % (13.2-15.2) 04/06/19 05:36 Plt Count 157 K/mm3 (140-440) 04/06/19 05:36 Lymph % (Auto) 7.5 % (13.4-35.0) L 04/06/19 05:36 [place] % (Auto) 8.0 % (0.0-7.3) H 04/06/19 05:36 Eos % (Auto) 0.4 % (0.0-4.3) 04/06/19 05:36 Baso % (Auto) 0.3 % (0.0-1.8) 04/06/19 05:36 Lymph # 1.1 K/mm3 (1.2-5.4) L 04/06/19 05:36 [place] # 1.2 K/mm3 (0.0-0.8) H 04/06/19 05:36 Eos # 0.1 K/mm3 (0.0-0.4) 04/06/19 05:36 Baso # 0.0 K/mm3 (0.0-0.1) 04/06/19 05:36 Add Manual Diff Complete 04/04/19 13:56 Total Counted 100 04/04/19 13:56 Seg Neutrophils % 83.8 % (40.0-70.0) H 04/06/19 05:36 Seg Neuts % (Manual) 84.0 % (40.0-70.0) H 04/04/19 13:56 5.0 % 04/04/19 13:56 7.0 % (13.4-35.0) L 04/04/19 13:56 Reactive Lymphs % (Man) 0 % 04/04/19 13:56 4.0 % (0.0-7.3) 04/04/19 13:56 0 % (0.0-4.3) 04/04/19 13:56 0 % (0.0-1.8) 04/04/19 13:56 0 % 04/04/19 13:56 0 % 04/04/19 13:56 0 % 04/04/19 13:56 0 % 04/04/19 13:56 Nucleated RBC % Not Reportable 04/04/19 13:56 Seg Neutrophils # 12.7 K/mm3 (1.8-7.7) H 04/06/19 05:36 Seg Neutrophils # Man 9.9 K/mm3 (1.8-7.7) H 04/04/19 13:56 Band Neutrophils # 0.6 K/mm3 04/04/19 13:56 0.8 K/mm3 (1.2-5.4) L 04/04/19 13:56 Abs React Lymphs (Man) 0.0 K/mm3 04/04/19 13:56 0.5 K/mm3 (0.0-0.8) 04/04/19 13:56 0.0 K/mm3 (0.0-0.4) 04/04/19 13:56 0.0 K/mm3 (0.0-0.1) 04/04/19 13:56 0.0 K/mm3 04/04/19 13:56 0.0 K/mm3 04/04/19 13:56 0.0 K/mm3 04/04/19 13:56 Blast Cells # 0.0 K/mm3 04/04/19 13:56 WBC Morphology Not Reportable 04/04/19 13:56 WBC Morphology TNR 04/04/19 13:56 Hypersegmented Neuts Not Reportable 04/04/19 13:56 Hyposegmented Neuts Not Reportable 04/04/19 13:56 Hypogranular Neuts Not Reportable 04/04/19 13:56 Not Reportable 04/04/19 13:56 Not Reportable 04/04/19 13:56 Not Reportable 04/04/19 13:56 Not Reportable 04/04/19 13:56 Not Reportable 04/04/19 13:56 Not Reportable 04/04/19 13:56 Not Reportable 04/04/19 13:56 Not Reportable 04/04/19 13:56 Plt Clumps, EDTA Not Reportable 04/04/19 13:56 Not Reportable 04/04/19 13:56 Not Reportable 04/04/19 13:56 Not Reportable 04/04/19 13:56 Plt Morphology Comment Not Reportable 04/04/19 13:56 RBC Morphology Not Reportable 04/04/19 13:56 Dimorphic RBCs Not Reportable 04/04/19 13:56 Not Reportable 04/04/19 13:56 Not Reportable 04/04/19 13:56 Not Reportable 04/04/19 13:56 Few 04/04/19 13:56 Not Reportable 04/04/19 13:56 Not Reportable 04/04/19 13:56 Not Reportable 04/04/19 13:56 Not Reportable 04/04/19 13:56 Not Reportable 04/04/19 13:56 Not Reportable 04/04/19 13:56 Not Reportable 04/04/19 13:56 Not Reportable 04/04/19 13:56 Not Reportable 04/04/19 13:56 Not Reportable 04/04/19 13:56 Not Reportable 04/04/19 13:56 Not Reportable 04/04/19 13:56 Not Reportable 04/04/19 13:56 Not Reportable 04/04/19 13:56 Not Reportable 04/04/19 13:56 Acanthocytes (Spur) Not Reportable 04/04/19 13:56 Rouleaux Not Reportable 04/04/19 13:56 Not Reportable 04/04/19 13:56 Not Reportable 04/04/19 13:56 Not Reportable 04/04/19 13:56 Not Reportable 04/04/19 13:56 Hem Pathologist Commnt No 04/04/19 13:56 Sodium 136 mmol/L (137-145) L 04/06/19 05:36 Potassium 3.7 mmol/L (3.6-5.0) 04/06/19 05:36 Chloride 99.9 mmol/L (98-107) 04/06/19 05:36 Carbon Dioxide 26 mmol/L (22-30) 04/06/19 05:36 14 mmol/L 04/06/19 05:36 BUN 8 mg/dL (9-20) L 04/06/19 05:36 0.9 mg/dL (0.8-1.5) 04/06/19 05:36 Estimated GFR > 60 ml/min 04/06/19 05:36 9 % 04/06/19 05:36 Glucose 111 mg/dL (75-100) H 04/06/19 05:36 5.4 % (4-6) 04/05/19 04:10 Calcium 8.9 mg/dL (8.4-10.2) 04/06/19 05:36 0.60 mg/dL (0.1-1.2) 04/06/19 05:36 AST 24 units/L (5-40) 04/06/19 05:36 ALT 24 units/L (7-56) 04/06/19 05:36 85 units/L (35-129) 04/06/19 05:36 6.5 g/dL (6.3-8.2) 04/06/19 05:36 3.4 g/dL (3.9-5) L 04/06/19 05:36 1.1 % 04/06/19 05:36 Amylase 66 units/L (27-131) 04/04/19 13:56 22 units/L (13-60) 04/04/19 13:56 Yellow (Yellow) 04/04/19 13:56 Clear (Clear) 04/04/19 13:56 9.0 (5.0-7.0) H 04/04/19 13:56 Ur Specific [place] 1.024 (1.003-1.030) 04/04/19 13:56 100 mg/dl mg/dL (Negative) 04/04/19 13:56 Neg mg/dL (Negative) 04/04/19 13:56 80 mg/dL (Negative) 04/04/19 13:56 Neg (Negative) 04/04/19 13:56 Neg (Negative) 04/04/19 13:56 Neg (Negative) 04/04/19 13:56 2.0 mg/dL (<2.0) 04/04/19 13:56 Ur Leukocyte Esterase Neg (Negative) 04/04/19 13:56 1.0 /HPF (0.0-6.0) 04/04/19 13:56 6.0 /HPF (0.0-6.0) 04/04/19 13:56 U Epithel Cells (Auto) < 1.0 /HPF (0-13.0) 04/04/19 13:56 Few /HPF 04/04/19 13:56 Plasma/Serum Alcohol < 0.01 % (0-0.07) 04/04/19 13:56 Active Medications - Current Medications Current Medications: Generic Name Dose Route Start Last Admin Trade Name Freq PRN Reason Stop Dose Admin Acetaminophen 650 mg 04/04/19 22:22 04/06/19 06:14 Tylenol PO 650 mg Q4H PRN Administration Pain MILD(1-3)/Fever >100.5/ESPINOZA Famotidine 20 mg 04/04/19 23:00 04/06/19 11:33 Pepcid IV 20 mg BID YAMILA Administration Folic Acid 1 mg 04/06/19 10:00 04/06/19 11:35 Folvite PO 1 mg QDAY YAMILA Administration Hydromorphone HCl 1 mg 04/04/19 22:22 04/06/19 11:27 Dilaudid IV 1 mg Q3H PRN Administration Pain , Severe (7-10) Dextrose/Sodium Chloride 1,000 mls @ 75 mls/hr 04/04/19 23:00 04/06/19 11:40 D5ns IV 75 mls/hr DIRECT YAMILA Administration Piperacillin Sod/Tazobactam Sod 4.5 gm in 100 mls @ 200 mls/hr 04/05/19 00:00 04/06/19 05:00 Zosyn/Ns 4.5gm/100ml IV 200 mls/hr Q8H YAMILA Administration Protocol Levofloxacin/Dextrose 500 mg in 100 mls @ 100 mls/hr 04/05/19 14:00 04/06/19 11:35 Levaquin 500mg/100ml IV 100 mls/hr Q24HR YAMILA Administration Protocol Lorazepam 2 mg 04/05/19 17:08 Ativan PO Q1H PRN CIWA-Ar 8-15 Lorazepam 4 mg 04/05/19 17:08 Ativan IV Q1H PRN CIWA-Ar 16-25 Lorazepam 4 mg 04/05/19 17:08 Ativan IV Q15MIN PRN CIWA-Ar >25 Metoclopramide HCl 10 mg 04/04/19 22:22 04/05/19 04:25 Reglan IV 10 mg Q6H PRN Administration Nausea And Vomiting Nicotine 14 mg 04/05/19 12:00 04/06/19 11:38 Habitrol TD 14 mg QDAY YAMILA Administration Ondansetron HCl 4 mg 04/04/19 22:22 04/04/19 23:46 Zofran IV 4 mg Q3H PRN Administration Nausea And Vomiting Sodium Chloride 10 ml 04/05/19 10:00 04/06/19 11:40 Sodium Chloride Flush Syringe 10 Ml IV 10 ml BID YAMILA Administration Sodium Chloride 10 ml 04/04/19 22:22 04/06/19 06:17 Sodium Chloride Flush Syringe 10 Ml IV 10 ml PRN PRN Administration LINE FLUSH Thiamine HCl 100 mg 04/06/19 10:00 04/06/19 11:34 Vitamin B-1 PO 100 mg QDAY YAMILA Administration
--- NOTE | 2019-04-06 13:19 | Progress Note ---
Assessment and Plan Pt status quo. c/o RUQ abd pain Abd - RUQ & R flank tenderness HIDA - consistent with acute GB discussed with IR. Would have preferred to proceed with CT GB drainage to reduce complication rate and chances of having to "open" as GB is quite distended and inflammed with surrounding pericholecystic fluid. But IR not comfortable with performing cholecystostomy tube drainage on pt. continue present care of NPO and IV antibiotics will proceed with lap GB probable open GB in am. Higher complication rates discussed with pt. Consent signed Selected Entries 04/06/19 04/06/19 04/06/19 04:54 11:00 11:57 Temperature 100.3 F H Pulse Rate 76 Respiratory 16 Rate Blood Pressure 107/62 [Left] Laboratory Tests 04/06/19 05:36 WBC 15.1 H Objective Vital Signs - 12hr 04/06/19 04/06/19 04/06/19 04:54 06:14 11:00 Temperature 100.3 F H 99.1 F Pulse Rate 76 76 Respiratory 20 17 18 Rate Blood Pressure 100/63 Blood Pressure 107/62 [Left] O2 Sat by Pulse 97 94 Oximetry 04/06/19 04/06/19 11:27 11:57 Temperature Pulse Rate Respiratory 20 16 Rate Blood Pressure Blood Pressure [Left] O2 Sat by Pulse Oximetry - Labs 04/06/19 05:36 04/06/19 05:36 Diabetes panel 04/06/19 Range/Units 05:36 Sodium 136 L (137-145) mmol/L Potassium 3.7 (3.6-5.0) mmol/L Chloride 99.9 (98-107) mmol/L Carbon Dioxide 26 (22-30) mmol/L BUN 8 L (9-20) mg/dL Creatinine 0.9 (0.8-1.5) mg/dL Glucose 111 H (75-100) mg/dL Calcium 8.9 (8.4-10.2) mg/dL AST 24 (5-40) units/L ALT 24 (7-56) units/L Alkaline Phosphatase 85 (35-129) units/L Total Protein 6.5 (6.3-8.2) g/dL Albumin 3.4 L (3.9-5) g/dL Calcium panel 04/06/19 Range/Units 05:36 Calcium 8.9 (8.4-10.2) mg/dL Albumin 3.4 L (3.9-5) g/dL Pituitary panel 04/06/19 Range/Units 05:36 Sodium 136 L (137-145) mmol/L Potassium 3.7 (3.6-5.0) mmol/L Chloride 99.9 (98-107) mmol/L Carbon Dioxide 26 (22-30) mmol/L BUN 8 L (9-20) mg/dL Creatinine 0.9 (0.8-1.5) mg/dL Glucose 111 H (75-100) mg/dL Calcium 8.9 (8.4-10.2) mg/dL Adrenal panel 04/06/19 Range/Units 05:36 Sodium 136 L (137-145) mmol/L Potassium 3.7 (3.6-5.0) mmol/L Chloride 99.9 (98-107) mmol/L Carbon Dioxide 26 (22-30) mmol/L BUN 8 L (9-20) mg/dL Creatinine 0.9 (0.8-1.5) mg/dL Glucose 111 H (75-100) mg/dL Calcium 8.9 (8.4-10.2) mg/dL Total Bilirubin 0.60 (0.1-1.2) mg/dL AST 24 (5-40) units/L ALT 24 (7-56) units/L Alkaline Phosphatase 85 (35-129) units/L Total Protein 6.5 (6.3-8.2) g/dL Albumin 3.4 L (3.9-5) g/dL
--- NOTE | 2019-04-06 17:17 | Consultation ---
History of Present Illness - Reason for Consult Consult date: 04/06/19 Cholecystostomy tube - History of Present Illness 44 year old AAM male with no significant past medical history started de veloping some severe right lower and right upper quadrant pain last night. Patient had multiple episodes of nausea vomiting and had one episode of diarrhea today. Patient states he has not had a subjective fever but has had some diaphoresis. Patient also had chills overnight. Patient states the pain is 10 out of 10 in severity and crampy in nature.No exacerbating or relieving factors. Patient had ultrasound, CT and HIDA compatible with cholecystitis. No comorbidities except alcohol and tobacco abuse. Doing well. Thin. A&Ox3. Past History Past Medical History: No medical history Past Surgical History: No surgical history Social history: smoking, alcohol abuse Medications and Allergies Allergies Allergy/AdvReac Type Severity Reaction Status Date / Time No Known Allergies Allergy Unverified 04/04/19 13:45 Home Medications Medication Instructions Recorded Confirmed Last Taken Type No Known Home Medications [No 04/04/19 04/04/19 Unknown History Reported Home Medications] Active Meds: Active Medications Acetaminophen (Tylenol) 650 mg PO Q4H PRN PRN Reason: Pain MILD(1-3)/Fever >100.5/ESPINOZA Last Admin: 04/06/19 06:14 Dose: 650 mg Documented by: Famotidine (Pepcid) 20 mg IV BID [facility] Last Admin: 04/06/19 11:33 Dose: 20 mg Documented by: Folic Acid (Folvite) 1 mg PO QDAY [facility] Last Admin: 04/06/19 11:35 Dose: 1 mg Documented by: Hydromorphone HCl (Dilaudid) 1 mg IV Q3H PRN PRN Reason: Pain , Severe (7-10) Last Admin: 04/06/19 11:27 Dose: 1 mg Documented by: Dextrose/Sodium Chloride (D5ns) 1,000 mls @ 75 mls/hr IV DIRECT [facility] Last Admin: 04/06/19 11:40 Dose: 75 mls/hr Documented by: Piperacillin Sod/Tazobactam Sod (Zosyn/Ns 4.5gm/100ml) 4.5 gm in 100 mls @ 200 mls/hr IV Q8H [facility]; Protocol Last Admin: 04/06/19 13:37 Dose: 200 mls/hr Documented by: Levofloxacin/Dextrose (Levaquin 500mg/100ml) 500 mg in 100 mls @ 100 mls/hr IV Q24HR [facility]; Protocol Last Admin: 04/06/19 11:35 Dose: 100 mls/hr Documented by: Lorazepam (Ativan) 2 mg PO Q1H PRN PRN Reason: CIWA-Ar 8-15 Lorazepam (Ativan) 4 mg IV Q1H PRN PRN Reason: CIWA-Ar 16-25 Lorazepam (Ativan) 4 mg IV Q15MIN PRN PRN Reason: CIWA-Ar >25 Metoclopramide HCl (Reglan) 10 mg IV Q6H PRN PRN Reason: Nausea And Vomiting Last Admin: 04/05/19 04:25 Dose: 10 mg Documented by: Nicotine (Habitrol) 14 mg TD QDAY [facility] Last Admin: 04/06/19 11:38 Dose: 14 mg Documented by: Ondansetron HCl (Zofran) 4 mg IV Q3H PRN PRN Reason: Nausea And Vomiting Last Admin: 04/04/19 23:46 Dose: 4 mg Documented by: Sodium Chloride (Sodium Chloride Flush Syringe 10 Ml) 10 ml IV BID [facility] Last Admin: 04/06/19 11:40 Dose: 10 ml Documented by: Sodium Chloride (Sodium Chloride Flush Syringe 10 Ml) 10 ml IV PRN PRN PRN Reason: LINE FLUSH Last Admin: 04/06/19 06:17 Dose: 10 ml Documented by: Thiamine HCl (Vitamin B-1) 100 mg PO QDAY [facility] Last Admin: 04/06/19 11:34 Dose: 100 mg Documented by: Review of Systems All systems: negative (see HPI) Exam - Constitutional Vitals: Temp Pulse Resp BP Pulse Ox 98.4 F 76 18 116/77 98 04/06/19 16:00 04/06/19 16:00 04/06/19 16:00 04/06/19 16:00 04/06/19 16:00 General appearance: Present: no acute distress - EENT Eyes: Present: EOM intact ENT: hearing intact - Respiratory Respiratory effort: normal - Extremities Extremities: normal temperature, normal color - Abdominal General gastrointestinal: Present: tender (RUQ and R flank ; no left sided pain) - Psychiatric Psychiatric: appropriate mood/affect, cooperative Results - Labs CBC & Chem 7: 04/06/19 05:36 04/06/19 05:36 Labs: Abnormal lab results 04/06/19 04/06/19 Range/Units 05:36 05:36 WBC 15.1 H (4.5-11.0) K/mm3 Lymph % (Auto) 7.5 L (13.4-35.0) % [place] % (Auto) 8.0 H (0.0-7.3) % Lymph # 1.1 L (1.2-5.4) K/mm3 [place] # 1.2 H (0.0-0.8) K/mm3 Seg Neutrophils % 83.8 H (40.0-70.0) % Seg Neutrophils # 12.7 H (1.8-7.7) K/mm3 Sodium 136 L (137-145) mmol/L BUN 8 L (9-20) mg/dL Glucose 111 H (75-100) mg/dL Albumin 3.4 L (3.9-5) g/dL - Imaging and Cardiology CT scan - abdomen: report reviewed, image reviewed US - abdomen: report reviewed, image reviewed (and HIDA) Assessment and Plan 44 year old male with acute cholecystitis without prior past medical history. No indication for cholecystostomy tube. Cholecystostomy tubes are placed in patients with comorbidies precluding cholecystectomy. Discussed with patient. Recommend cholecystectomy.
[2019-04-07] MEDS: ZOSYN/NS 4.5GM/100ML 4.5 GM/100 ML VIAL IV SCH ×4 (01:23→23:27)
[2019-04-07] MEDS: SODIUM CHLORIDE FLUSH SYRINGE 10 ML IV PRN (01:25)
[2019-04-07] MEDS: DILAUDID IV PRN ×7 (01:44→23:25)
[2019-04-07] MEDS: SODIUM CHLORIDE FLUSH SYRINGE 10 ML IV SCH ×3 (01:46→22:01)
[2019-04-07] MEDS: D5NS 1,000 ML IV SCH (04:20)
[2019-04-07] MEDS: HABITROL TD SCH (10:14)
[2019-04-07] MEDS: PEPCID IV SCH ×2 (10:14→22:00)
[2019-04-07] MEDS: FOLVITE PO SCH (11:37)
[2019-04-07] MEDS: VITAMIN B-1 PO SCH (11:52)
--- NOTE | 2019-04-07 12:09 | Anesthesia Day of Surgery ---
Anesthesia Day of Surgery - Day of Surgery Patient Examined: Yes Patient H&P Reviewed: Yes Patient is NPO: Yes
[2019-04-07] MEDS ORDERED: ZOFRAN IV PRN (12:11)
[2019-04-07] MEDS ORDERED: SUBLIMAZE IV PRN (12:11)
--- NOTE | 2019-04-07 12:11 | Anesthesia Consultation ---
Anesthesia Consult and Med Hx Date of service: 04/07/19 - Airway Anesthetic Teeth Evaluation: Edentulous ROM Head & Neck: Adequate Mental/Hyoid Distance: Adequate Mallampati Class: Class II Intubation Access Assessment: Good - Pre-Operative Health Status ASA Pre-Surgery Classification: ASA2 Proposed Anesthetic Plan: General - Pulmonary Hx Smoking: Yes (Some STATON) - Other Systems Hx Alcohol Use: Yes
[2019-04-07] MEDS ORDERED: MORPHINE IV ONE (12:13)
[2019-04-07] MEDS ORDERED: TYLENOL PO ONE (12:13)
--- NOTE | 2019-04-07 12:24 | Progress Note ---
Assessment and Plan Assessment and plan: Patient is a 44 yo man with a history of tobacco dependency and alcohol abuse who presents with right upper abdominal pains. * CT abdomen and pelvis 2 small gallstones with subtotal gallbladder wall edema concerning for cholecystitis * HIDA scan, gb not visualized Abdominal pain, most likely Acute cholecystitis with Gallstones: Lap stanley is indicated before he gets septic or goes into alcohol withdrawals, continue IV abx, paged Dr. Damon, d/w IR, Dr. Bryant Nicotine dependence: family and marriage counsellor on cessation, nicotine patches as needed ETOH abuse: treat with CIWA protocol, family and marriage counsellor on stopping OR today History Interval history: Patient was seen and examined. Follow-up on current diagnosis of Acute cholecystitis. Overnight uneventful. Patient denies any chest pain, shortness breath, nausea/vomiting or severe headaches. Imaging, nursing note, chart, labs and old chart reviewed. Discussed with patient. Aunt at bedside Hospitalist Physical - Physical exam Narrative exam: Gen: WDWN, NAD, Awake, Alert, Orientated x 3 HEENT: NCAT, EOMI, PERRL, OP Clear Neck: supple, no adenopathy, no thyromegaly, no JVD CVS/Heart: RRR, normal S1S2, pulses present bilaterally Chest/Lungs: CTA B, Symmetrical chest expansion, good air entry bilaterally GI/Abdomen: not rigid, RUQ tenderness good bowel sounds, + guarding, rebound /Bladder: no suprapubic tenderness, no CVA or paraspinal tenderness Extermity/Skin: no c/c/e, no obvious rash MSK: FROM x 4 Neuro: CN 2-12 grossly intact, no new focal deficits, no tremors Psych: calm - Constitutional Vitals: Temp Pulse Resp BP Pulse Ox 99.3 F 72 20 108/69 97 04/07/19 07:29 04/07/19 07:29 04/07/19 07:29 04/07/19 07:29 04/07/19 07:29 General appearance: Present: no acute distress Results - Labs CBC & Chem 7: 04/06/19 05:36 04/06/19 05:36 Labs: Laboratory Last Values WBC 15.1 K/mm3 (4.5-11.0) H 04/06/19 05:36 RBC 4.65 M/mm3 (3.65-5.03) 04/06/19 05:36 Hgb 13.8 gm/dl (11.8-15.2) 04/06/19 05:36 Hct 40.8 % (35.5-45.6) 04/06/19 05:36 MCV 88 fl (84-94) 04/06/19 05:36 MCH 30 pg (28-32) 04/06/19 05:36 MCHC 34 % (32-34) 04/06/19 05:36 RDW 14.0 % (13.2-15.2) 04/06/19 05:36 Plt Count 157 K/mm3 (140-440) 04/06/19 05:36 Lymph % (Auto) 7.5 % (13.4-35.0) L 04/06/19 05:36 [place] % (Auto) 8.0 % (0.0-7.3) H 04/06/19 05:36 Eos % (Auto) 0.4 % (0.0-4.3) 04/06/19 05:36 Baso % (Auto) 0.3 % (0.0-1.8) 04/06/19 05:36 Lymph # 1.1 K/mm3 (1.2-5.4) L 04/06/19 05:36 [place] # 1.2 K/mm3 (0.0-0.8) H 04/06/19 05:36 Eos # 0.1 K/mm3 (0.0-0.4) 04/06/19 05:36 Baso # 0.0 K/mm3 (0.0-0.1) 04/06/19 05:36 Add Manual Diff Complete 04/04/19 13:56 Total Counted 100 04/04/19 13:56 Seg Neutrophils % 83.8 % (40.0-70.0) H 04/06/19 05:36 Seg Neuts % (Manual) 84.0 % (40.0-70.0) H 04/04/19 13:56 5.0 % 04/04/19 13:56 7.0 % (13.4-35.0) L 04/04/19 13:56 Reactive Lymphs % (Man) 0 % 04/04/19 13:56 4.0 % (0.0-7.3) 04/04/19 13:56 0 % (0.0-4.3) 04/04/19 13:56 0 % (0.0-1.8) 04/04/19 13:56 0 % 04/04/19 13:56 0 % 04/04/19 13:56 0 % 04/04/19 13:56 0 % 04/04/19 13:56 Nucleated RBC % Not Reportable 04/04/19 13:56 Seg Neutrophils # 12.7 K/mm3 (1.8-7.7) H 04/06/19 05:36 Seg Neutrophils # Man 9.9 K/mm3 (1.8-7.7) H 04/04/19 13:56 Band Neutrophils # 0.6 K/mm3 04/04/19 13:56 0.8 K/mm3 (1.2-5.4) L 04/04/19 13:56 Abs React Lymphs (Man) 0.0 K/mm3 04/04/19 13:56 0.5 K/mm3 (0.0-0.8) 04/04/19 13:56 0.0 K/mm3 (0.0-0.4) 04/04/19 13:56 0.0 K/mm3 (0.0-0.1) 04/04/19 13:56 0.0 K/mm3 04/04/19 13:56 0.0 K/mm3 04/04/19 13:56 0.0 K/mm3 04/04/19 13:56 Blast Cells # 0.0 K/mm3 04/04/19 13:56 WBC Morphology Not Reportable 04/04/19 13:56 WBC Morphology TNR 04/04/19 13:56 Hypersegmented Neuts Not Reportable 04/04/19 13:56 Hyposegmented Neuts Not Reportable 04/04/19 13:56 Hypogranular Neuts Not Reportable 04/04/19 13:56 Not Reportable 04/04/19 13:56 Not Reportable 04/04/19 13:56 Not Reportable 04/04/19 13:56 Not Reportable 04/04/19 13:56 Not Reportable 04/04/19 13:56 Not Reportable 04/04/19 13:56 Not Reportable 04/04/19 13:56 Not Reportable 04/04/19 13:56 Plt Clumps, EDTA Not Reportable 04/04/19 13:56 Not Reportable 04/04/19 13:56 Not Reportable 04/04/19 13:56 Not Reportable 04/04/19 13:56 Plt Morphology Comment Not Reportable 04/04/19 13:56 RBC Morphology Not Reportable 04/04/19 13:56 Dimorphic RBCs Not Reportable 04/04/19 13:56 Not Reportable 04/04/19 13:56 Not Reportable 04/04/19 13:56 Not Reportable 04/04/19 13:56 Few 04/04/19 13:56 Not Reportable 04/04/19 13:56 Not Reportable 04/04/19 13:56 Not Reportable 04/04/19 13:56 Not Reportable 04/04/19 13:56 Not Reportable 04/04/19 13:56 Not Reportable 04/04/19 13:56 Not Reportable 04/04/19 13:56 Not Reportable 04/04/19 13:56 Not Reportable 04/04/19 13:56 Not Reportable 04/04/19 13:56 Not Reportable 04/04/19 13:56 Not Reportable 04/04/19 13:56 Not Reportable 04/04/19 13:56 Not Reportable 04/04/19 13:56 Not Reportable 04/04/19 13:56 Acanthocytes (Spur) Not Reportable 04/04/19 13:56 Rouleaux Not Reportable 04/04/19 13:56 Not Reportable 04/04/19 13:56 Not Reportable 04/04/19 13:56 Not Reportable 04/04/19 13:56 Not Reportable 04/04/19 13:56 Hem Pathologist Commnt No 04/04/19 13:56 Sodium 136 mmol/L (137-145) L 04/06/19 05:36 Potassium 3.7 mmol/L (3.6-5.0) 04/06/19 05:36 Chloride 99.9 mmol/L (98-107) 04/06/19 05:36 Carbon Dioxide 26 mmol/L (22-30) 04/06/19 05:36 14 mmol/L 04/06/19 05:36 BUN 8 mg/dL (9-20) L 04/06/19 05:36 0.9 mg/dL (0.8-1.5) 04/06/19 05:36 Estimated GFR > 60 ml/min 04/06/19 05:36 9 % 04/06/19 05:36 Glucose 111 mg/dL (75-100) H 04/06/19 05:36 5.4 % (4-6) 04/05/19 04:10 Calcium 8.9 mg/dL (8.4-10.2) 04/06/19 05:36 0.60 mg/dL (0.1-1.2) 04/06/19 05:36 AST 24 units/L (5-40) 04/06/19 05:36 ALT 24 units/L (7-56) 04/06/19 05:36 85 units/L (35-129) 04/06/19 05:36 6.5 g/dL (6.3-8.2) 04/06/19 05:36 3.4 g/dL (3.9-5) L 04/06/19 05:36 1.1 % 04/06/19 05:36 Amylase 66 units/L (27-131) 04/04/19 13:56 22 units/L (13-60) 04/04/19 13:56 Yellow (Yellow) 04/04/19 13:56 Clear (Clear) 04/04/19 13:56 9.0 (5.0-7.0) H 04/04/19 13:56 Ur Specific [place] 1.024 (1.003-1.030) 04/04/19 13:56 100 mg/dl mg/dL (Negative) 04/04/19 13:56 Neg mg/dL (Negative) 04/04/19 13:56 80 mg/dL (Negative) 04/04/19 13:56 Neg (Negative) 04/04/19 13:56 Neg (Negative) 04/04/19 13:56 Neg (Negative) 04/04/19 13:56 2.0 mg/dL (<2.0) 04/04/19 13:56 Ur Leukocyte Esterase Neg (Negative) 04/04/19 13:56 1.0 /HPF (0.0-6.0) 04/04/19 13:56 6.0 /HPF (0.0-6.0) 04/04/19 13:56 U Epithel Cells (Auto) < 1.0 /HPF (0-13.0) 04/04/19 13:56 Few /HPF 04/04/19 13:56 Plasma/Serum Alcohol < 0.01 % (0-0.07) 04/04/19 13:56 Active Medications - Current Medications Current Medications: Generic Name Dose Route Start Last Admin Trade Name Freq PRN Reason Stop Dose Admin Celecoxib 200 mg 04/07/19 13:00 Celebrex PO 04/08/19 12:59 PREOP NR Famotidine 20 mg 04/04/19 23:00 04/07/19 10:14 Pepcid IV 20 mg BID YAIMLA Administration Fentanyl 50 mcg 04/07/19 12:11 Sublimaze IV 04/08/19 12:10 Q5MIN PRN Pain , Severe (7-10) Folic Acid 1 mg 04/06/19 10:00 04/06/19 11:35 Folvite PO 1 mg QDAY YAMILA Administration Gabapentin 300 mg 04/07/19 13:00 Neurontin PO 04/08/19 12:59 PREOP NR Hydromorphone HCl 1 mg 04/04/19 22:22 04/07/19 10:09 Dilaudid IV 1 mg Q3H PRN Administration Pain , Severe (7-10) Dextrose/Sodium Chloride 1,000 mls @ 75 mls/hr 04/04/19 23:00 04/07/19 04:20 D5ns IV 75 mls/hr DIRECT YAMILA Administration Piperacillin Sod/Tazobactam Sod 4.5 gm in 100 mls @ 200 mls/hr 04/05/19 00:00 04/07/19 10:14 Zosyn/Ns 4.5gm/100ml IV 200 mls/hr Q8H YAMILA Administration Protocol Levofloxacin/Dextrose 500 mg in 100 mls @ 100 mls/hr 04/05/19 14:00 04/06/19 11:35 Levaquin 500mg/100ml IV 100 mls/hr Q24HR YAMILA Administration Protocol Lactated Ringer's 1,000 mls @ 125 mls/hr 04/07/19 13:00 Lactated Ringers IV DIRECT YAMILA Lorazepam 2 mg 04/05/19 17:08 Ativan PO Q1H PRN CIWA-Ar 8-15 Lorazepam 4 mg 04/05/19 17:08 Ativan IV Q1H PRN CIWA-Ar 16-25 Lorazepam 4 mg 04/05/19 17:08 Ativan IV Q15MIN PRN CIWA-Ar >25 Metoclopramide HCl 10 mg 04/04/19 22:22 04/05/19 04:25 Reglan IV 10 mg Q6H PRN Administration Nausea And Vomiting Midazolam HCl 2 mg 04/07/19 13:00 Versed IV 04/07/19 23:59 PREOP NR Nicotine 14 mg 04/05/19 12:00 04/07/19 10:14 Habitrol TD 14 mg QDAY YAMILA Administration Ondansetron HCl 4 mg 04/04/19 22:22 04/04/19 23:46 Zofran IV 4 mg Q3H PRN Administration Nausea And Vomiting Ondansetron HCl 4 mg 04/07/19 12:11 Zofran IV ONCE PRN Nausea And Vomiting Sodium Chloride 10 ml 04/05/19 10:00 04/07/19 10:08 Sodium Chloride Flush Syringe 10 Ml IV 10 ml BID YAMILA Administration Sodium Chloride 10 ml 04/04/19 22:22 04/07/19 01:25 Sodium Chloride Flush Syringe 10 Ml IV 10 ml PRN PRN Administration LINE FLUSH Thiamine HCl 100 mg 04/06/19 10:00 04/06/19 11:34 Vitamin B-1 PO 100 mg QDAY YAMILA Administration
[2019-04-07] MEDS: LACTATED RINGERS 1,000 ML IV SCH (12:25)
[2019-04-07] MEDS: LEVAQUIN 500MG/100ML 500 MG/100 ML BAG IV SCH (12:29)
[2019-04-07] MEDS ORDERED: ZOFRAN ONE (12:49)
[2019-04-07] MEDS ORDERED: ZEMURON IV ONE (12:49)
[2019-04-07] MEDS ORDERED: XYLOCAINE MPF 2% ONE (12:49)
[2019-04-07] MEDS ORDERED: SUBLIMAZE ONE ×3 (12:50→15:14)
[2019-04-07] MEDS ORDERED: DIPRIVAN 10 MG/ML IV ONE (12:50)
[2019-04-07] MEDS ORDERED: MARCAINE-EPI 0.5%-1:200,000 INFILTRATI ONE ×2 (12:53→14:19)
[2019-04-07] MEDS ORDERED: VERSED IV NR (13:00)
[2019-04-07] MEDS ORDERED: NEURONTIN PO NR (13:00)
[2019-04-07] MEDS ORDERED: RECOTHROM TP ONE ×3 (14:15→14:29)
[2019-04-07] MEDS ORDERED: GELFOAM TP ONE ×2 (14:18→14:22)
[2019-04-07] MEDS ORDERED: NACL 0.9% IR ONE ×2 (14:19→14:20)
[2019-04-07] MEDS ORDERED: ROBINUL ONE (14:57)
[2019-04-07] MEDS ORDERED: BLOXIVERZ ONE (14:57)
--- NOTE | 2019-04-07 15:23 | Progress Note ---
Assessment and Plan Post - Op note: Very difficult procedurel gangrenous GB with omental phlegmon. some oozing noted from the GB fossa during dissection. controlled with cautery as well as gelfoam and thrombin. MARLYN drain left. will monitor h/h repeat labs in am stable Objective Vital Signs - 12hr 04/07/19 04/07/19 04/07/19 04:06 06:55 07:29 Temperature 99.2 F 99.3 F 99.3 F Pulse Rate 71 72 72 Respiratory 17 16 20 Rate Blood Pressure 96/57 Blood Pressure 108/67 108/69 [Left] O2 Sat by Pulse 97 98 97 Oximetry 04/07/19 04/07/19 04/07/19 11:55 12:26 12:30 Temperature 99.0 F Pulse Rate 72 Respiratory 18 18 18 Rate Blood Pressure 118/71 Blood Pressure [Left] O2 Sat by Pulse 96 Oximetry 04/07/19 04/07/19 04/07/19 12:34 12:35 12:56 Temperature 99.0 F Pulse Rate 72 Respiratory 18 18 18 Rate Blood Pressure 118/71 Blood Pressure [Left] O2 Sat by Pulse 96 Oximetry 04/07/19 13:20 Temperature Pulse Rate Respiratory 18 Rate Blood Pressure Blood Pressure [Left] O2 Sat by Pulse Oximetry - Labs 04/06/19 05:36 04/06/19 05:36
--- NOTE | 2019-04-07 16:42 | Post Anesthesia Evaluation ---
- Post Anesthesia Evaluation Patient Participated: Yes Airway Patent: Yes Stable Respiratory Function: Yes Nausea/Vomiting: No Temp > 96.8F: Yes Pain Manageable: Yes Adequeate Hydration: Yes Anesthesia Complications: No
--- NOTE | 2019-04-07 17:34 | Operative Report ---
PREOPERATIVE DIAGNOSIS: Rule out acute cholecystitis. POSTOPERATIVE DIAGNOSIS: Acute gangrenous cholecystitis. PROCEDURE: Laparoscopic cholecystectomy. SURGEON: Luis Alberto Damon MD DICTATING TRANSCRIBING MACHINE SERVICER: Vilma Mukherjee DO ANESTHESIA: General. ESTIMATED BLOOD LOSS: 100 mL. DRAINS: One 19 Casper drain left. COMPLICATIONS: None. PROCEDURE IN DETAIL: The patient was taken to the operating room, prepped and draped in usual sterile fashion. Veress needle was inserted and CO2 insufflation begun. A 5 mm trocar was then inserted and camera inserted. All other trocars inserted under direct visualization. Attention was then focused to the right upper quadrant where an omental phlegmon was noted, enveloping the gallbladder. The omentum was slowly able to be peeled and thus revealing a gangrenous gallbladder. The gallbladder was then decompressed with a laparoscopic needle. Approximately 60 mL of bile were obtained. The bowel was sent for aerobic and anaerobic cultures. Gallbladder was then grasped at the fundus and infundibulum and retracted towards the right subphrenic space. Fortunately, the gangrenous portions were in the body of the gallbladder. The fundal area was not gangrenous and was able to be slowly dissected with an Endo Kittner. The cystic duct and artery were then identified. Both were then clipped and transected. Hook electrocautery was used to dissect the gallbladder from the overlying liver bed. Some oozing was noted secondary to the inflammation. This was subsequently controlled with electrocautery as well as Gelfoam and thrombin. Gallbladder was dissected free and removed. Gallbladder was then brought out through the subxiphoid trocar site. This site had to be extended due to the large gallbladder as well as the accompanying inflammation and multiple large stones. Gallbladder was then able to be removed. The subxiphoid trocar was then gently reinserted. The entire right upper quadrant of the abdomen was copiously irrigated and suctioned dry. Checked for hemostasis and noted to be dry. A 19 Casper was then left draining the gallbladder fossa. The drain was brought out through the lateral 5 mm port site. The drain was secured to the skin with 2-0 silk sutures. The fascia at the subxiphoid port site was closed with 2 [id number] 0 Vicryl sutures. This repair was inspected through the lateral 5 mm port and noted to be well closed and without evidence of any bleeding or oozing. The final 5 mm port was used to expel the CO2 and the trocar removed. The skin at all port sites was closed with subcuticular 4-0 Vicryl. A 0.5% Marcaine was infiltrated over the port site for postoperative pain relief. The patient tolerated the procedure well and left the OR in stable condition. JOB# [id number] CLARK/DEAN
[2019-04-07 17:35] LABS: Hematocrit 40.7 % (35.5-45.6); Hemoglobin 13.4 gm/dl (11.8-15.2); Mean Corpuscular HGB Conc 33 % (32-34); Mean Corpuscular Volume 88 fl (84-94); Platelet Count 184 K/mm3 (140-440); Red Blood Count 4.62 M/mm3 (3.65-5.03); Red Cell Distribution Width 14.2 % (13.2-15.2)
[2019-04-07 20:49] LABS: Basophils % (Manual) 0 % (0.0-1.8); Eosinophils % (Manual) 0 % (0.0-4.3); Total Cells Counted 100
[2019-04-07 20:50] LABS: Anisocytosis 1+; Platelet Estimate Consistent w Auto
[2019-04-07 21:58] LABS: Hematocrit 40.8 % (35.5-45.6); Hemoglobin 13.6 gm/dl (11.8-15.2); Mean Corpuscular HGB Conc 33 % (32-34); Mean Corpuscular Volume 89 fl (84-94); Platelet Count 185 K/mm3 (140-440)
[2019-04-07 22:17] LABS: Alanine Aminotransferase 51 units/L (7-56); Albumin 3.1 g/dL (3.9-5); BUN/Creatinine Ratio 10; Blood Urea Nitrogen 9 mg/dL (9-20); Calcium 8.7 mg/dL (8.4-10.2); Hemolysis Index 12
[2019-04-08] MEDS: DILAUDID IV PRN ×6 (02:11→22:10)
[2019-04-08] MEDS: LACTATED RINGERS 1,000 ML IV SCH ×2 (02:16→13:13)
[2019-04-08 04:45] LABS: Basophils % (Manual) 0 % (0.0-1.8); Eosinophils % (Manual) 0 % (0.0-4.3); Total Cells Counted 100
[2019-04-08 04:46] LABS: Macrocytosis Rare; Ovalocytes Few; Platelet Estimate Consistent w Auto
[2019-04-08 06:39] LABS: Eosinophils % (Auto) 0.1 % (0.0-4.3); Hematocrit 43.3 % (35.5-45.6); Hemoglobin 14.3 gm/dl (11.8-15.2); Lymphocytes # (Auto) 0.8 K/mm3 (1.2-5.4); Lymphocytes % (Auto) 6.3 % (13.4-35.0); Mean Corpuscular HGB Conc 33 % (32-34); Mean Corpuscular Volume 88 fl (84-94); Monocytes # (Auto) 0.9 K/mm3 (0.0-0.8); Monocytes % (Auto) 6.9 % (0.0-7.3); Platelet Count 230 K/mm3 (140-440); Red Blood Count 4.91 M/mm3 (3.65-5.03); Red Cell Distribution Width 13.9 % (13.2-15.2)
[2019-04-08 07:03] LABS: Alanine Aminotransferase 50 units/L (7-56); Albumin 3.4 g/dL (3.9-5); BUN/Creatinine Ratio 11; Blood Urea Nitrogen 10 mg/dL (9-20); Calcium 9.1 mg/dL (8.4-10.2); Hemolysis Index 5
[2019-04-08] MEDS: ZOSYN/NS 4.5GM/100ML 4.5 GM/100 ML VIAL IV SCH ×2 (09:23→17:09)
[2019-04-08] MEDS: HABITROL TD SCH (09:24)
[2019-04-08] MEDS: SODIUM CHLORIDE FLUSH SYRINGE 10 ML IV SCH (09:24)
[2019-04-08] MEDS: PEPCID IV SCH ×2 (09:24→22:11)
[2019-04-08] MEDS: LEVAQUIN 500MG/100ML 500 MG/100 ML BAG IV SCH (11:12)
--- NOTE | 2019-04-08 11:46 | Progress Note ---
Assessment and Plan POD # 1 Pt feeling better. ambulated in room. hungry. MARLYN 230 cc clear serosanguineous Abd soft. BS + h/h's stable wbc down to 13.2 total bili - wnl stable attempt low fat cl liq diet ambulate down halls Incentive spirometer f/u labs in am Laboratory Tests 04/08/19 04/08/19 06:23 06:23 WBC 13.2 H Hgb 14.3 Hct 43.3 Total Bilirubin 0.50 Objective Vital Signs - 12hr 04/08/19 04/08/19 04/08/19 00:10 05:09 08:00 Temperature 97.7 F 98.5 F 98.0 F Pulse Rate 60 58 L 84 Respiratory 17 17 19 Rate Blood Pressure 99/56 113/65 Blood Pressure 127/73 [Left] O2 Sat by Pulse 96 95 96 Oximetry - Labs 04/08/19 06:23 04/08/19 06:23 Diabetes panel 04/07/19 04/08/19 Range/Units 21:40 06:23 Sodium 136 L 139 (137-145) mmol/L Potassium 4.2 4.1 (3.6-5.0) mmol/L Chloride 97.7 L 99.0 (98-107) mmol/L Carbon Dioxide 28 29 (22-30) mmol/L BUN 9 10 (9-20) mg/dL Creatinine 0.9 0.9 (0.8-1.5) mg/dL Glucose 121 H 100 (75-100) mg/dL Calcium 8.7 9.1 (8.4-10.2) mg/dL AST 69 H 60 H (5-40) units/L ALT 51 50 (7-56) units/L Alkaline Phosphatase 75 83 (35-129) units/L Total Protein 6.5 6.9 (6.3-8.2) g/dL Albumin 3.1 L 3.4 L (3.9-5) g/dL Calcium panel 04/07/19 04/08/19 Range/Units 21:40 06:23 Calcium 8.7 9.1 (8.4-10.2) mg/dL Albumin 3.1 L 3.4 L (3.9-5) g/dL Pituitary panel 04/07/19 04/08/19 Range/Units 21:40 06:23 Sodium 136 L 139 (137-145) mmol/L Potassium 4.2 4.1 (3.6-5.0) mmol/L Chloride 97.7 L 99.0 (98-107) mmol/L Carbon Dioxide 28 29 (22-30) mmol/L BUN 9 10 (9-20) mg/dL Creatinine 0.9 0.9 (0.8-1.5) mg/dL Glucose 121 H 100 (75-100) mg/dL Calcium 8.7 9.1 (8.4-10.2) mg/dL Adrenal panel 04/07/19 04/08/19 Range/Units 21:40 06:23 Sodium 136 L 139 (137-145) mmol/L Potassium 4.2 4.1 (3.6-5.0) mmol/L Chloride 97.7 L 99.0 (98-107) mmol/L Carbon Dioxide 28 29 (22-30) mmol/L BUN 9 10 (9-20) mg/dL Creatinine 0.9 0.9 (0.8-1.5) mg/dL Glucose 121 H 100 (75-100) mg/dL Calcium 8.7 9.1 (8.4-10.2) mg/dL Total Bilirubin 0.60 0.50 (0.1-1.2) mg/dL AST 69 H 60 H (5-40) units/L ALT 51 50 (7-56) units/L Alkaline Phosphatase 75 83 (35-129) units/L Total Protein 6.5 6.9 (6.3-8.2) g/dL Albumin 3.1 L 3.4 L (3.9-5) g/dL
[2019-04-08] MEDS: FOLVITE PO SCH (13:00)
[2019-04-08] MEDS: VITAMIN B-1 PO SCH (13:00)
--- NOTE | 2019-04-08 13:52 | Progress Note ---
Assessment and Plan Assessment and plan: Patient is a 44 yo man with a history of tobacco dependency and alcohol abuse who presents with right upper abdominal pains. * CT abdomen and pelvis 2 small gallstones with subtotal gallbladder wall edema concerning for cholecystitis * HIDA scan, gb not visualized Acute gangreneous cholecystitis with Gallstones: Lap stanley is indicated before he gets septic or goes into alcohol withdrawals, continue IV abx, paged Dr. Damon, d/w IR, Dr. Bryant Nicotine dependence: certified lactation counselor on cessation, nicotine patches as needed ETOH abuse: treat with CIWA protocol, certified lactation counselor on stopping OR today History Interval history: Patient was seen and examined. Follow-up on current diagnosis of Acute cholecys titis. Overnight uneventful. Patient denies any chest pain, shortness breath, nausea/vomiting or severe headaches. Imaging, nursing note, chart, labs and old chart reviewed. Discussed with patient. Aunt at bedside Hospitalist Physical - Physical exam Narrative exam: Gen: WDWN, NAD, Awake, Alert, Orientated x 3 HEENT: NCAT, EOMI, PERRL, OP Clear Neck: supple, no adenopathy, no thyromegaly, no JVD CVS/Heart: RRR, normal S1S2, pulses present bilaterally Chest/Lungs: CTA B, Symmetrical chest expansion, good air entry bilaterally GI/Abdomen: not rigid, RUQ tenderness good bowel sounds, + guarding, rebound /Bladder: no suprapubic tenderness, no CVA or paraspinal tenderness Extermity/Skin: no c/c/e, no obvious rash MSK: FROM x 4 Neuro: CN 2-12 grossly intact, no new focal deficits, no tremors Psych: calm - Constitutional Vitals: Temp Pulse Resp BP Pulse Ox 97.6 F 70 17 123/82 97 04/08/19 13:00 04/08/19 13:00 04/08/19 13:00 04/08/19 13:00 04/08/19 13:00 General appearance: Present: no acute distress Results - Labs CBC & Chem 7: 04/08/19 06:23 04/08/19 06:23 Labs: Laboratory Last Values WBC 13.2 K/mm3 (4.5-11.0) H 04/08/19 06:23 RBC 4.91 M/mm3 (3.65-5.03) 04/08/19 06:23 Hgb 14.3 gm/dl (11.8-15.2) 04/08/19 06:23 Hct 43.3 % (35.5-45.6) 04/08/19 06:23 MCV 88 fl (84-94) 04/08/19 06:23 MCH 29 pg (28-32) 04/08/19 06: MCHC 33 % (32-34) 04/08/19 06:23 RDW 13.9 % (13.2-15.2) 04/08/19 06:23 Plt Count 230 K/mm3 (140-440) 04/08/19 06:23 Lymph % (Auto) 6.3 % (13.4-35.0) L 04/08/19 06:23 [place] % (Auto) 6.9 % (0.0-7.3) 04/08/19 06:23 Eos % (Auto) 0.1 % (0.0-4.3) 04/08/19 06: Baso % (Auto) 0.0 % (0.0-1.8) 04/08/19 06:23 Lymph # 0.8 K/mm3 (1.2-5.4) L 04/08/19 06:23 [place] # 0.9 K/mm3 (0.0-0.8) H 04/08/19 06:23 Eos # 0.0 K/mm3 (0.0-0.4) 04/08/19 06:23 Baso # 0.0 K/mm3 (0.0-0.1) 04/08/19 06:23 Add Manual Diff Complete 04/07/19 21:42 Total Counted 100 04/07/19 21:42 Seg Neutrophils % 86.7 % (40.0-70.0) H 04/08/19 06:23 Seg Neuts % (Manual) 95.0 % (40.0-70.0) H 04/07/19 21:42 0 % 04/07/19 21:42 4.0 % (13.4-35.0) L 04/07/19 21:42 Reactive Lymphs % (Man) 0 % 04/07/19 21:42 1.0 % (0.0-7.3) 04/07/19 21:42 0 % (0.0-4.3) 04/07/19 21:42 0 % (0.0-1.8) 04/07/19 21:42 0 % 04/07/19 21:42 0 % 04/07/19 21:42 0 % 04/07/19 21:42 0 % 04/07/19 21:42 Nucleated RBC % Not Reportable 04/07/19 21:42 Seg Neutrophils # 11.5 K/mm3 (1.8-7.7) H 04/08/19 06:23 Seg Neutrophils # Man 11.6 K/mm3 (1.8-7.7) H 04/07/19 21:42 Band Neutrophils # 0.0 K/mm3 04/07/19 21:42 0.5 K/mm3 (1.2-5.4) L 04/07/19 21:42 Abs React Lymphs (Man) 0.0 K/mm3 04/07/19 21:42 0.1 K/mm3 (0.0-0.8) 04/07/19 21:42 0.0 K/mm3 (0.0-0.4) 04/07/19 21:42 0.0 K/mm3 (0.0-0.1) 04/07/19 21:42 0.0 K/mm3 04/07/19 21:42 0.0 K/mm3 04/07/19 21:42 0.0 K/mm3 04/07/19 21:42 Blast Cells # 0.0 K/mm3 04/07/19 21:42 WBC Morphology Not Reportable 04/07/19 21:42 Hypersegmented Neuts Not Reportable 04/07/19 21:42 Hyposegmented Neuts Not Reportable 04/07/19 21:42 Hypogranular Neuts Not Reportable 04/07/19 21:42 Not Reportable 04/07/19 21:42 Not Reportable 04/07/19 21:42 Not Reportable 04/07/19 21:42 Not Reportable 04/07/19 21:42 Not Reportable 04/07/19 21:42 Not Reportable 04/07/19 21:42 Consistent w auto 04/07/19 21:42 Not Reportable 04/07/19 21:42 Plt Clumps, EDTA Not Reportable 04/07/19 21:42 Not Reportable 04/07/19 21:42 Not Reportable 04/07/19 21:42 Not Reportable 04/07/19 21:42 Plt Morphology Comment Not Reportable 04/07/19 21:42 RBC Morphology Not Reportable 04/07/19 21:42 Dimorphic RBCs Not Reportable 04/07/19 21:42 Not Reportable 04/07/19 21:42 Not Reportable 04/07/19 21:42 Not Reportable 04/07/19 21:42 Not Reportable 04/07/19 21:42 Not Reportable 04/07/19 21:42 Rare 04/07/19 21:42 Not Reportable 04/07/19 21:42 Not Reportable 04/07/19 21:42 Not Reportable 04/07/19 21:42 Not Reportable 04/07/19 21:42 Not Reportable 04/07/19 21:42 Few 04/07/19 21:42 Not Reportable 04/07/19 21:42 Not Reportable 04/07/19 21:42 Not Reportable 04/07/19 21:42 Not Reportable 04/07/19 21:42 Not Reportable 04/07/19 21:42 Not Reportable 04/07/19 21:42 Not Reportable 04/07/19 21:42 Acanthocytes (Spur) Not Reportable 04/07/19 21:42 Rouleaux Not Reportable 04/07/19 21:42 Not Reportable 04/07/19 21:42 Not Reportable 04/07/19 21:42 Not Reportable 04/07/19 21:42 Not Reportable 04/07/19 21:42 Hem Pathologist Commnt No 04/07/19 21:42 Sodium 139 mmol/L (137-145) 04/08/19 06:23 Potassium 4.1 mmol/L (3.6-5.0) 04/08/19 06:23 Chloride 99.0 mmol/L (98-107) 04/08/19 06:23 Carbon Dioxide 29 mmol/L (22-30) 04/08/19 06:23 15 mmol/L 04/08/19 06:23 BUN 10 mg/dL (9-20) 04/08/19 06:23 0.9 mg/dL (0.8-1.5) 04/08/19 06:23 Estimated GFR > 60 ml/min 04/08/19 06:23 11 % 04/08/19 06:23 Glucose 100 mg/dL (75-100) 04/08/19 06:23 5.4 % (4-6) 04/05/19 04:10 Calcium 9.1 mg/dL (8.4-10.2) 04/08/19 06:23 0.50 mg/dL (0.1-1.2) 04/08/19 06:23 AST 60 units/L (5-40) H 04/08/19 06:23 ALT 50 units/L (7-56) 04/08/19 06:23 83 units/L (35-129) 04/08/19 06:23 6.9 g/dL (6.3-8.2) 04/08/19 06:23 3.4 g/dL (3.9-5) L 04/08/19 06:23 1.0 % 04/08/19 06:23 Amylase 66 units/L (27-131) 04/04/19 13:56 22 units/L (13-60) 04/04/19 13:56 Yellow (Yellow) 04/04/19 13:56 Clear (Clear) 04/04/19 13:56 9.0 (5.0-7.0) H 04/04/19 13:56 Ur Specific [place] 1.024 (1.003-1.030) 04/04/19 13:56 100 mg/dl mg/dL (Negative) 04/04/19 13:56 Neg mg/dL (Negative) 04/04/19 13:56 80 mg/dL (Negative) 04/04/19 13:56 Neg (Negative) 04/04/19 13:56 Neg (Negative) 04/04/19 13:56 Neg (Negative) 04/04/19 13:56 2.0 mg/dL (<2.0) 04/04/19 13:56 Ur Leukocyte Esterase Neg (Negative) 04/04/19 13:56 1.0 /HPF (0.0-6.0) 04/04/19 13:56 6.0 /HPF (0.0-6.0) 04/04/19 13:56 U Epithel Cells (Auto) < 1.0 /HPF (0-13.0) 04/04/19 13:56 Few /HPF 04/04/19 13:56 Plasma/Serum Alcohol < 0.01 % (0-0.07) 04/04/19 13:56 Active Medications - Current Medications Current Medications: Generic Name Dose Route Start Last Admin Trade Name Freq PRN Reason Stop Dose Admin Famotidine 20 mg 04/04/19 23:00 04/08/19 09:24 Pepcid IV 20 mg BID YAMILA Administration Folic Acid 1 mg 04/06/19 10:00 04/08/19 13:00 Folvite PO 1 mg QDAY YAMILA Administration Hydromorphone HCl 1 mg 04/04/19 22:22 04/08/19 12:11 Dilaudid IV 1 mg Q3H PRN Administration Pain , Severe (7-10) Hydromorphone HCl 0.5 mg 04/07/19 15:24 04/07/19 15:51 Dilaudid IV 04/08/19 15:23 0.5 mg Q10MIN PRN Administration Pain , Severe (7-10) Dextrose/Sodium Chloride 1,000 mls @ 75 mls/hr 04/04/19 23:00 04/07/19 04:20 D5ns IV 75 mls/hr DIRECT YAMILA Administration Piperacillin Sod/Tazobactam Sod 4.5 gm in 100 mls @ 200 mls/hr 04/05/19 00:00 04/08/19 09:23 Zosyn/Ns 4.5gm/100ml IV 200 mls/hr Q8H YAMILA Administration Protocol Levofloxacin/Dextrose 500 mg in 100 mls @ 100 mls/hr 04/05/19 14:00 04/08/19 11:12 Levaquin 500mg/100ml IV 100 mls/hr Q24HR YAMILA Administration Protocol Lactated Ringer's 1,000 mls @ 125 mls/hr 04/07/19 13:00 04/08/19 02:16 Lactated Ringers IV 125 mls/hr DIRECT YAMILA Administration Lorazepam 2 mg 04/05/19 17:08 Ativan PO Q1H PRN CIWA-Ar 8-15 Lorazepam 4 mg 04/05/19 17:08 Ativan IV Q1H PRN CIWA-Ar 16-25 Lorazepam 4 mg 04/05/19 17:08 Ativan IV Q15MIN PRN CIWA-Ar >25 Metoclopramide HCl 10 mg 04/04/19 22:22 04/05/19 04:25 Reglan IV 10 mg Q6H PRN Administration Nausea And Vomiting Nicotine 14 mg 04/05/19 12:00 04/08/19 09:24 Habitrol TD 14 mg QDAY YAMILA Administration Ondansetron HCl 4 mg 04/04/19 22:22 04/04/19 23:46 Zofran IV 4 mg Q3H PRN Administration Nausea And Vomiting Ondansetron HCl 4 mg 04/07/19 12:11 Zofran IV ONCE PRN Nausea And Vomiting Sodium Chloride 10 ml 04/05/19 10:00 04/08/19 09:24 Sodium Chloride Flush Syringe 10 Ml IV 10 ml BID YAMILA Administration Sodium Chloride 10 ml 04/04/19 22:22 04/07/19 01:25 Sodium Chloride Flush Syringe 10 Ml IV 10 ml PRN PRN Administration LINE FLUSH Thiamine HCl 100 mg 04/06/19 10:00 04/08/19 13:00 Vitamin B-1 PO 100 mg QDAY YAMILA Administration
[2019-04-08] MEDS: NORCO 5/325 PO PRN ×2 (14:51→23:27)
[2019-04-09] MEDS: ZOSYN/NS 4.5GM/100ML 4.5 GM/100 ML VIAL IV SCH ×2 (00:19→07:25)
[2019-04-09] MEDS: LACTATED RINGERS 1,000 ML IV SCH (00:23)
[2019-04-09] MEDS: SODIUM CHLORIDE FLUSH SYRINGE 10 ML IV SCH ×3 (00:31→10:52)
[2019-04-09] MEDS: DILAUDID IV PRN ×3 (02:05→14:15)
[2019-04-09] MEDS: NORCO 5/325 PO PRN ×3 (03:46→17:35)
[2019-04-09 07:48] LABS: Basophils # (Auto) 0.1 K/mm3 (0.0-0.1); Basophils % (Auto) 1.2 % (0.0-1.8); Eosinophils # (Auto) 0.3 K/mm3 (0.0-0.4); Eosinophils % (Auto) 3.8 % (0.0-4.3); Hematocrit 41.1 % (35.5-45.6); Lymphocytes % (Auto) 28.8 % (13.4-35.0); Mean Corpuscular HGB Conc 34 % (32-34); Mean Corpuscular Volume 88 fl (84-94); Monocytes # (Auto) 0.8 K/mm3 (0.0-0.8); Monocytes % (Auto) 12.1 % (0.0-7.3); Platelet Count 227 K/mm3 (140-440); Red Blood Count 4.66 M/mm3 (3.65-5.03)
[2019-04-09] MEDS: VITAMIN B-1 PO SCH (10:51)
[2019-04-09] MEDS: LEVAQUIN 500MG/100ML 500 MG/100 ML BAG IV SCH (10:51)
[2019-04-09] MEDS: FOLVITE PO SCH (10:51)
[2019-04-09] MEDS: HABITROL TD SCH (10:51)
[2019-04-09] MEDS: PEPCID IV SCH (10:52)
--- NOTE | 2019-04-09 11:47 | Progress Note ---
Assessment and Plan Assessment and plan: Patient is a 44 yo man with a history of tobacco dependency and alcohol abuse who presents with right upper abdominal pains. * CT abdomen and pelvis 2 small gallstones with subtotal gallbladder wall edema concerning for cholecystitis * HIDA scan, gb not visualized Acute gangreneous cholecystitis with Gallstones s/p Lap stanley 04/07/19 with MARLYN drain: GS to manage drain. Nicotine dependence: family life counselor on cessation, nicotine patches as needed ETOH abuse: treat with CIWA protocol, family life counselor on stopping Disposition: continue inpatient until GS clears. History Interval history: Patient was seen and examined. Follow-up on current diagnosis of Acute cholecystitis, abd pains improving, less pains. Overnight uneventful. Patient denies any chest pain, shortness breath, nausea/vomiting or severe headaches. Imaging, nursing note, chart, labs and old chart reviewed. Discussed with patient. Hospitalist Physical - Physical exam Narrative exam: Gen: WDWN, NAD, Awake, Alert, Orientated x 3 HEENT: NCAT, EOMI, PERRL, OP Clear Neck: supple, no adenopathy, no thyromegaly, no JVD CVS/Heart: Regular carin, normal S1S2, pulses present bilaterally Chest/Lungs: CTA B, Symmetrical chest expansion, good air entry bilaterally GI/Abdomen: MARLYN drain in place, less tenderness and no guarding, rebound /Bladder: no suprapubic tenderness, no CVA or paraspinal tenderness Extermity/Skin: no c/c/e, no obvious rash MSK: FROM x 4 Neuro: CN 2-12 grossly intact, no new focal deficits, no tremors Psych: calm - Constitutional Vitals: Temp Pulse Resp BP Pulse Ox 98.3 F 51 L 18 108/66 97 04/09/19 07:15 04/09/19 07:15 04/09/19 07:15 04/09/19 07:15 04/09/19 07:15 General appearance: Present: no acute distress Results - Labs CBC & Chem 7: 04/09/19 07:41 04/08/19 06:23 Labs: Laboratory Last Values WBC 7.0 K/mm3 (4.5-11.0) 04/09/19 07:41 RBC 4.66 M/mm3 (3.65-5.03) 04/09/19 07:41 Hgb 14.0 gm/dl (11.8-15.2) 04/09/19 07:41 Hct 41.1 % (35.5-45.6) 04/09/19 07:41 MCV 88 fl (84-94) 04/09/19 07:41 MCH 30 pg (28-32) 04/09/19 07:41 MCHC 34 % (32-34) 04/09/19 07:41 RDW 14.0 % (13.2-15.2) 04/09/19 07:41 Plt Count 227 K/mm3 (140-440) 04/09/19 07:41 Lymph % (Auto) 28.8 % (13.4-35.0) 04/09/19 07:41 [place] % (Auto) 12.1 % (0.0-7.3) H 04/09/19 07:41 Eos % (Auto) 3.8 % (0.0-4.3) 04/09/19 07:41 Baso % (Auto) 1.2 % (0.0-1.8) 04/09/19 07:41 Lymph # 2.0 K/mm3 (1.2-5.4) 04/09/19 07:41 [place] # 0.8 K/mm3 (0.0-0.8) 04/09/19 07:41 Eos # 0.3 K/mm3 (0.0-0.4) 04/09/19 07:41 Baso # 0.1 K/mm3 (0.0-0.1) 04/09/19 07:41 Add Manual Diff Complete 04/07/19 21:42 Total Counted 100 04/07/19 21:42 Seg Neutrophils % 54.1 % (40.0-70.0) 04/09/19 07:41 Seg Neuts % (Manual) 95.0 % (40.0-70.0) H 04/07/19 21:42 0 % 04/07/19 21:42 4.0 % (13.4-35.0) L 04/07/19 21:42 Reactive Lymphs % (Man) 0 % 04/07/19 21:42 1.0 % (0.0-7.3) 04/07/19 21:42 0 % (0.0-4.3) 04/07/19 21:42 0 % (0.0-1.8) 04/07/19 21:42 0 % 04/07/19 21:42 0 % 04/07/19 21:42 0 % 04/07/19 21:42 0 % 04/07/19 21:42 Nucleated RBC % Not Reportable 04/07/19 21:42 Seg Neutrophils # 3.8 K/mm3 (1.8-7.7) 04/09/19 07:41 Seg Neutrophils # Man 11.6 K/mm3 (1.8-7.7) H 04/07/19 21:42 Band Neutrophils # 0.0 K/mm3 04/07/19 21:42 0.5 K/mm3 (1.2-5.4) L 04/07/19 21:42 Abs React Lymphs (Man) 0.0 K/mm3 04/07/19 21:42 0.1 K/mm3 (0.0-0.8) 04/07/19 21:42 0.0 K/mm3 (0.0-0.4) 04/07/19 21:42 0.0 K/mm3 (0.0-0.1) 04/07/19 21:42 0.0 K/mm3 04/07/19 21:42 0.0 K/mm3 04/07/19 21:42 0.0 K/mm3 04/07/19 21:42 Blast Cells # 0.0 K/mm3 04/07/19 21:42 WBC Morphology Not Reportable 04/07/19 21:42 Hypersegmented Neuts Not Reportable 04/07/19 21:42 Hyposegmented Neuts Not Reportable 04/07/19 21:42 Hypogranular Neuts Not Reportable 04/07/19 21:42 Not Reportable 04/07/19 21:42 Not Reportable 04/07/19 21:42 Not Reportable 04/07/19 21:42 Not Reportable 04/07/19 21:42 Not Reportable 04/07/19 21:42 Not Reportable 04/07/19 21:42 Consistent w auto 04/07/19 21:42 Not Reportable 04/07/19 21:42 Plt Clumps, EDTA Not Reportable 04/07/19 21:42 Not Reportable 04/07/19 21:42 Not Reportable 04/07/19 21:42 Not Reportable 04/07/19 21:42 Plt Morphology Comment Not Reportable 04/07/19 21:42 RBC Morphology Not Reportable 04/07/19 21:42 Dimorphic RBCs Not Reportable 04/07/19 21:42 Not Reportable 04/07/19 21:42 Not Reportable 04/07/19 21:42 Not Reportable 04/07/19 21:42 Not Reportable 04/07/19 21:42 Not Reportable 04/07/19 21:42 Rare 04/07/19 21:42 Not Reportable 04/07/19 21:42 Not Reportable 04/07/19 21:42 Not Reportable 04/07/19 21:42 Not Reportable 04/07/19 21:42 Not Reportable 04/07/19 21:42 Few 04/07/19 21:42 Not Reportable 04/07/19 21:42 Not Reportable 04/07/19 21:42 Not Reportable 04/07/19 21:42 Not Reportable 04/07/19 21:42 Not Reportable 04/07/19 21:42 Not Reportable 04/07/19 21:42 Not Reportable 04/07/19 21:42 Acanthocytes (Spur) Not Reportable 04/07/19 21:42 Rouleaux Not Reportable 04/07/19 21:42 Not Reportable 04/07/19 21:42 Not Reportable 04/07/19 21:42 Not Reportable 04/07/19 21:42 Not Reportable 04/07/19 21:42 Hem Pathologist Commnt No 04/07/19 21:42 Sodium 139 mmol/L (137-145) 04/08/19 06:23 Potassium 4.1 mmol/L (3.6-5.0) 04/08/19 06:23 Chloride 99.0 mmol/L (98-107) 04/08/19 06:23 Carbon Dioxide 29 mmol/L (22-30) 04/08/19 06:23 15 mmol/L 04/08/19 06:23 BUN 10 mg/dL (9-20) 04/08/19 06:23 0.9 mg/dL (0.8-1.5) 04/08/19 06:23 Estimated GFR > 60 ml/min 04/08/19 06:23 11 % 04/08/19 06:23 Glucose 100 mg/dL (75-100) 04/08/19 06:23 5.4 % (4-6) 04/05/19 04:10 Calcium 9.1 mg/dL (8.4-10.2) 04/08/19 06:23 0.50 mg/dL (0.1-1.2) 04/08/19 06:23 AST 60 units/L (5-40) H 04/08/19 06:23 ALT 50 units/L (7-56) 04/08/19 06:23 83 units/L (35-129) 04/08/19 06:23 6.9 g/dL (6.3-8.2) 04/08/19 06:23 3.4 g/dL (3.9-5) L 04/08/19 06:23 1.0 % 04/08/19 06:23 Amylase 66 units/L (27-131) 04/04/19 13:56 22 units/L (13-60) 04/04/19 13:56 Yellow (Yellow) 04/04/19 13:56 Clear (Clear) 04/04/19 13:56 9.0 (5.0-7.0) H 04/04/19 13:56 Ur Specific [place] 1.024 (1.003-1.030) 04/04/19 13:56 100 mg/dl mg/dL (Negative) 04/04/19 13:56 Neg mg/dL (Negative) 04/04/19 13:56 80 mg/dL (Negative) 04/04/19 13:56 Neg (Negative) 04/04/19 13:56 Neg (Negative) 04/04/19 13:56 Neg (Negative) 04/04/19 13:56 2.0 mg/dL (<2.0) 04/04/19 13:56 Ur Leukocyte Esterase Neg (Negative) 04/04/19 13:56 1.0 /HPF (0.0-6.0) 04/04/19 13:56 6.0 /HPF (0.0-6.0) 04/04/19 13:56 U Epithel Cells (Auto) < 1.0 /HPF (0-13.0) 04/04/19 13:56 Few /HPF 04/04/19 13:56 Plasma/Serum Alcohol < 0.01 % (0-0.07) 04/04/19 13:56 Active Medications - Current Medications Current Medications: Generic Name Dose Route Start Last Admin Trade Name Freq PRN Reason Stop Dose Admin Acetaminophen/Hydrocodone Bitart 1 each 04/08/19 14:19 04/09/19 10:51 [place] 5/325 PO 1 each Q4H PRN Administration Pain, Moderate (4-6) Famotidine 20 mg 04/04/19 23:00 04/09/19 10:52 Pepcid IV 20 mg BID YAMILA Administration Folic Acid 1 mg 04/06/19 10:00 04/09/19 10:51 Folvite PO 1 mg QDAY YAMILA Administration Hydromorphone HCl 1 mg 04/04/19 22:22 04/09/19 05:44 Dilaudid IV 1 mg Q3H PRN Administration Pain , Severe (7-10) Dextrose/Sodium Chloride 1,000 mls @ 75 mls/hr 04/04/19 23:00 04/07/19 04:20 D5ns IV 75 mls/hr DIRECT YAMILA Administration Piperacillin Sod/Tazobactam Sod 4.5 gm in 100 mls @ 200 mls/hr 04/05/19 00:00 04/09/19 00:19 Zosyn/Ns 4.5gm/100ml IV 200 mls/hr Q8H YAMILA Administration Protocol Levofloxacin/Dextrose 500 mg in 100 mls @ 100 mls/hr 04/05/19 14:00 04/09/19 10:51 Levaquin 500mg/100ml IV 100 mls/hr Q24HR YAMILA Administration Protocol Lactated Ringer's 1,000 mls @ 125 mls/hr 04/07/19 13:00 04/09/19 00:23 Lactated Ringers IV 125 mls/hr DIRECT YAMILA Administration Lorazepam 2 mg 04/05/19 17:08 Ativan PO Q1H PRN CIWA-Ar 8-15 Lorazepam 4 mg 04/05/19 17:08 Ativan IV Q1H PRN CIWA-Ar 16-25 Lorazepam 4 mg 04/05/19 17:08 Ativan IV Q15MIN PRN CIWA-Ar >25 Metoclopramide HCl 10 mg 04/04/19 22:22 04/05/19 04:25 Reglan IV 10 mg Q6H PRN Administration Nausea And Vomiting Nicotine 14 mg 04/05/19 12:00 04/09/19 10:51 Habitrol TD 14 mg QDAY YAMILA Administration Ondansetron HCl 4 mg 04/04/19 22:22 04/04/19 23:46 Zofran IV 4 mg Q3H PRN Administration Nausea And Vomiting Ondansetron HCl 4 mg 04/07/19 12:11 Zofran IV ONCE PRN Nausea And Vomiting Sodium Chloride 10 ml 04/05/19 10:00 04/09/19 10:52 Sodium Chloride Flush Syringe 10 Ml IV 10 ml BID YAMILA Administration Sodium Chloride 10 ml 04/04/19 22:22 04/07/19 01:25 Sodium Chloride Flush Syringe 10 Ml IV 10 ml PRN PRN Administration LINE FLUSH Thiamine HCl 100 mg 04/06/19 10:00 04/09/19 10:51 Vitamin B-1 PO 100 mg QDAY YAMLIA Administration
--- NOTE | 2019-04-09 11:57 | Progress Note ---
Assessment and Plan POD # 2 Pt c/o incisional pain over 1 cm port site. dayron cl liq diet. + flatus Abd soft, non tender + BS wbc down to 7 surgically stable advance to low fat solid diet today may d/c from surgical perspective if diet dayron rto next Fri (7 days) po Levaquin x 5 more days keep dressings dry x 5 days d/c MARLYN drain prior to d/c Selected Entries 04/09/19 07:15 Temperature 98.3 F Pulse Rate 51 L Respiratory 18 Rate Blood Pressure 108/66 Laboratory Tests 04/09/19 07:41 WBC 7.0 Hgb 14.0 Hct 41.1 Objective Vital Signs - 12hr 04/09/19 04/09/19 04:07 07:15 Temperature 98.0 F 98.3 F Pulse Rate 56 L 51 L Respiratory 19 18 Rate Blood Pressure 101/71 108/66 O2 Sat by Pulse 96 97 Oximetry - Labs 04/09/19 07:41 04/08/19 06:23
--- NOTE | 2019-04-09 15:48 | Discharge Summary ---
Providers - Providers Date of Admission: 04/04/19 16:43 Date of discharge: 04/09/19 Attending physician: PRESTON JACOBS 04/04/19 16:23 Consult to Physician [CONS] Urgent Comment: Consulting Provider: HANNA DAMON Physician Instructions: Reason For Exam: cholecystitis 04/06/19 11:47 Consult to Physician [CONS] Routine Comment: Consulting Provider: LISA SIMON Physician Instructions: Reason For Exam: CT guided GB drainage Primary care physician: BUSINESS ANALYSIS CONSULTANT Hospitalization Condition: Stable Hospital course: Patient is a 44 yo man with a history of tobacco dependency and alcohol abuse who presents with right upper abdominal pains. CT abdomen and pelvis 2 small gallstones with subtotal gallbladder wall edema concerning for cholecystitis HIDA scan, gb not visualized Discharge Diagnoses: Acute gangreneous cholecystitis with Gallstones s/p Lap stanley 04/07/19 with MARLYN drain: GS to manage drain. Nicotine dependence: mortgage counselor on cessation, nicotine patches as needed ETOH abuse: treat with CIWA protocol, mortgage counselor on stopping POD # 2 Pt c/o incisional pain over 1 cm port site. dayron cl liq diet. + flatus Abd soft, non tender + BS wbc down to 7 surgically stable advance to low fat solid diet today may d/c from surgical perspective if diet dayron rto next Fri (7 days) po Levaquin x 5 more days keep dressings dry x 5 days d/c MARLYN drain prior to d/c Disposition: DC-01 TO HOME OR SELFCARE Time spent for discharge: 35 minutes Core Measure Documentation - Palliative Care Palliative Care/ Comfort Measures: Not Applicable - Core Measures Any of the following diagnoses?: none - VTE Discharge Requirements Deep Vein Thrombosis/Pulmonary Embolism Present on Admission: No Has pt received <5 days of overlap therapy or INR<2.0: No Anticoagulant overlap therapy prescribed at discharge: No Contraindication No Overlap Therapy order at DC: Not Indicated Exam - Physical Exam Narrative exam: Gen: WDWN, NAD, Awake, Alert, Orientated x 3 HEENT: NCAT, EOMI, PERRL, OP Clear Neck: supple, no adenopathy, no thyromegaly, no JVD CVS/Heart: Regular carin, normal S1S2, pulses present bilaterally Chest/Lungs: CTA B, Symmetrical chest expansion, good air entry bilaterally GI/Abdomen: MARLYN drain in place, less tenderness and no guarding, rebound /Bladder: no suprapubic tenderness, no CVA or paraspinal tenderness Extermity/Skin: no c/c/e, no obvious rash MSK: FROM x 4 Neuro: CN 2-12 grossly intact, no new focal deficits, no tremors Psych: calm - Constitutional Vitals: Temp Pulse Resp BP Pulse Ox 98.6 F 56 L 18 109/65 100 04/09/19 12:13 04/09/19 12:13 04/09/19 12:13 04/09/19 12:04/09/19 12:13 Plan Activity: other (no strenous activity unless cleared by Dr. Damon) Diet: advance as tolerated (clear diet and advance to soft in next day or two) Wound: per your surgeon's advice Special Instructions: no heavy lifting Follow up with: PRIMARY CARE, [Primary Care Provider] - 3-5 Days HANNA DAMON MD [Staff Physician] - 7 Days Prescriptions: levoFLOXacin [Levaquin TAB] 500 mg PO QDAY #5 tablet HYDROcodone/APAP 5-325 [[place] 5/325] 1 - 2 each PO Q4HR PRN #30 tablet PRN Reason: Pain
[2019-04-09 16:39] VITALS: BP 119/73
== END 2019-04-09 16:45 | disposition home or self-care (01) | DRG 419 ==
LOC: ED 13:43 → 3B-SURG 16:43
PROVIDERS: ADMIT Internal Medicine; ATTEND Internal Medicine
PROC: 0FT44ZZ Resection of Gallbladder, Percutaneous Endoscopic Approach (ICD-10-PCS; principal; 2019-04-07)
DX: K80.00 Calculus of gallbladder with acute cholecystitis without obstruction (principal); K82.A1 Gangrene of gallbladder in cholecystitis; F10.10 Alcohol abuse, uncomplicated; F17.210 Nicotine dependence, cigarettes, uncomplicated; Z71.6 Tobacco abuse counseling; Z71.41 Alcohol abuse counseling and surveillance of alcoholic; Z82.49 Family history of ischemic heart disease and other diseases of the circulatory system; Z72.89 Other problems related to lifestyle
CPT/HCPCS: 36415; 74177; 76705; 78226; 80053; 80320; 81001; 82150; 83036; 83690; 85007; 85025; 87116; 88304; 96361; 96372; 96374; 96375; 99406; G0378; A4217; A4649; A9537; G0480; J0500; J1170; J1956; J2250; J2270; J2405; J2543; J2704; J2710; J2765; J3010; J7030; J7042; J7120; Q9967

== ENCOUNTER 2020-01-09 13:41 | Emergency (ER) | payer SELFPAY ==
[2020-01-09 14:05] VITALS: BP 99/58
--- NOTE | 2020-01-09 16:22 | Emergency Department Report ---
Chief Complaint: Wound/Laceration Stated Complaint: FINGER LAC Time Seen by Provider: 01/09/20 16:20 - HPI History of Present Illness: Pt is a 45 yo male who presents to the ED with c/o right index finger laceration that occurred at 9:30 AM yesterday. he states that he picked up a bag that had some broken glass and accidentally cut his finger. the bleeding is controlled with a bandaid. he is able to move the fingers. no numbness or weakness. PMHx none. no allergies to meds. he states his last tetanus immunization was 3 months ago. Vitals are stable on exam: 0.5 cm skin avulsion present to the right dorsal index finger, no subcutaneous fat involvement, no bleeding, no signs of infection, full range of motion of the right fingers and hand, neurovascularly intact Irrigated with saline and thoroughly scrubbed with Betadine Very small skin avulsion present does not need repair plus this occurred over 24 hours ago Discussed acute wound care with patient Advised patient please keep area clean, dry, covered. may wash with antibacterial soap and water and immediately dry. no hot tub, no pool, no soaking in water. showering is fine. follow up with a primary care doctor for reexamination. return to the emergency room for any new or worsening symptoms or any signs of infection Discussed strict return precautions with patient Patient referred to primary care doctor Medical screening examination performed and there is no threat to life or limb at this time - Exam Vital Signs: Vital Signs 01/09/20 14:05 Temperature 98.7 F Pulse Rate 78 Respiratory 20 Rate Blood Pressure 99/58 O2 Sat by Pulse 97 Oximetry MSE screening note: Focused history and physical exam performed. ED Disposition for MSE Clinical Impression: Skin avulsion Disposition: Z-07 MED SCREENING EXAM-LEFT Is pt being admited?: No Does the pt Need Aspirin: No Condition: Stable Instructions: Skin Avulsion (ED) Additional Instructions: please keep area clean, dry, covered. may wash with antibacterial soap and water and immediately dry. no hot tub, no pool, no soaking in water. showering is fine. follow up with a primary care doctor for reexamination. return to the emergency room for any new or worsening symptoms or any signs of infection Referrals: PALAK YOUNGER MD [Staff Physician] - 2-3 Days [facility] [Provider Group] - 2-3 Days [facility] [Outside] - 2-3 Days Forms: Work/School Release Form(ED) Time of Disposition: 16:28 Print Language: HONDURAN
== END 2020-01-09 16:55 | disposition left against medical advice (07) ==
LOC: ED 13:41
DX: M79.645 Pain in left finger(s) (principal); Z53.21 Procedure and treatment not carried out due to patient leaving prior to being seen by health care provider

== ENCOUNTER 2020-08-23 19:50 | Emergency (ER) | payer SELFPAY ==
[2020-08-23 20:33] LABS: Basophils # (Auto) 0.1 K/mm3 (0.0-0.1); Basophils % (Auto) 1.7 % (0.0-1.8); Eosinophils # (Auto) 0.2 K/mm3 (0.0-0.4); Eosinophils % (Auto) 4.2 % (0.0-4.3); Hematocrit 46.9 % (35.5-45.6); Hemoglobin 15.8 gm/dl (11.8-15.2); Lymphocytes # (Auto) 2.1 K/mm3 (1.2-5.4); Lymphocytes % (Auto) 37.1 % (13.4-35.0); Mean Corpuscular HGB Conc 34 % (32-34); Mean Corpuscular Volume 90 fl (84-94); Monocytes # (Auto) 0.3 K/mm3 (0.0-0.8); Monocytes % (Auto) 5.2 % (0.0-7.3); Platelet Count 186 K/mm3 (140-440); Red Blood Count 5.23 M/mm3 (3.65-5.03); Red Cell Distribution Width 13.6 % (13.2-15.2)
[2020-08-23 20:38] LABS: Bilirubin,Urine NEG (Negative); Blood,Urine NEG (Negative); Color,Urine Yellow (Yellow); Mucus,Urine FEW /HPF; Protein,Urine <15 mg/dL mg/dL (Negative); RBC,Urine < 1.0 /HPF (0.0-6.0)
[2020-08-23 20:49] LABS: Alanine Aminotransferase 19 units/L (7-56); Albumin 3.8 g/dL (3.9-5); BUN/Creatinine Ratio 14; Blood Urea Nitrogen 14 mg/dL (9-20); Calcium 8.4 mg/dL (8.4-10.2); Hemolysis Index 8
[2020-08-23 21:14] VITALS: BP 107/58
--- NOTE | 2020-08-23 21:19 | Emergency Department Report ---
ED Back Pain/Injury HPI - General Chief Complaint: Abdominal Pain Stated Complaint: ABD PAIN Time Seen by Provider: 08/23/20 21:10 Source: patient Limitations: No Limitations - History of Present Illness Initial Comments: This 45-year-old smoker presents emerged department complaining of pain across his lower back and achy spastic fashion of the radiates also up and down worse with palpation and range of motion but associated with no urinary issues. Pain going on for the last 3 to 4 days and he presents to the ED to be evaluated to ensure that all is well. He was somewhat worried due to having a cholecystectomy back in April and thought that is possible some postsurgical complications may have may have arisen. Reports no nausea, no vomiting tolerates meals well with no hemoptysis, hematemesis, hematochezia. Reports no constipation, no diarrhea. His biological does not tolerate push pull and lifting which he thinks may assess but may have to MD Complaint: back pain Similar Symptoms Previously: Yes Place: work Improves With: none Worsens With: none - Related Data Previous Rx's Medication Instructions Recorded Last Taken Type HYDROcodone/APAP 5-325 [[place] 1 - 2 each PO Q4HR PRN #30 tablet 04/09/19 Unknown Rx 5/325] levoFLOXacin [Levaquin TAB] 500 mg PO QDAY #5 tablet 04/09/19 Unknown Rx Ketorolac [Toradol] 10 mg PO Q6H PRN #20 tablet 08/23/20 Unknown Rx methOCARBAMOL [Robaxin TAB] 500 mg PO Q6H #30 tablet 08/23/20 Unknown Rx Allergies Allergy/AdvReac Type Severity Reaction Status Date / Time No Known Allergies Allergy Verified 01/09/20 14:00 ED Review of Systems ROS: Stated complaint: ABD PAIN Other details as noted in HPI Comment: All other systems reviewed and negative ED Past Medical Hx - Past Medical History Previous Medical History?: No - Surgical History Past Surgical History?: Yes Additional Surgical History: " BLADDER REMOVED." - Social History Smoking Status: Current Every Day Smoker Substance Use Type: Alcohol - Medications Home Medications: Home Medications Medication Instructions Recorded Confirmed Last Taken Type HYDROcodone/APAP 5-325 [[place] 1 - 2 each PO Q4HR PRN #30 tablet 04/09/19 Unkn own Rx 5/325] levoFLOXacin [Levaquin TAB] 500 mg PO QDAY #5 tablet 04/09/19 Unknown Rx Ketorolac [Toradol] 10 mg PO Q6H PRN #20 tablet 08/23/20 Unknown Rx methOCARBAMOL [Robaxin TAB] 500 mg PO Q6H #30 tablet 08/23/20 Unknown Rx ED Physical Exam - General Limitations: No Limitations General appearance: alert, in no apparent distress - Head Head exam: Present: atraumatic, normocephalic - Eye Eye exam: Present: normal appearance, PERRL Pupils: Present: normal accommodation - ENT ENT exam: Present: normal exam, mucous membranes moist - Neck Neck exam: Present: normal inspection, full ROM - Respiratory Respiratory exam: Present: normal lung sounds bilaterally. Absent: respiratory distress - Cardiovascular Cardiovascular Exam: Present: regular rate, normal rhythm. Absent: systolic murmur, diastolic murmur, rubs, gallop - GI/Abdominal GI/Abdominal exam: Present: soft, normal bowel sounds. Absent: distended, tenderness, guarding - Rectal Rectal exam: Present: deferred - Extremities Exam Extremities exam: Present: normal inspection - Back Exam Back exam: Present: normal inspection, tenderness (Tenderness with palpation along the paraspinous muscles. Minimal spasm is noted. Tenderness to the right sacroiliac joint is noted. See the straight leg raise is negative. No midline tenderness is noted.) - Neurological Exam Neurological exam: Present: alert, oriented X3, CN II-XII intact, normal gait - Psychiatric Psychiatric exam: Present: normal affect, normal mood - Skin Skin exam: Present: warm, dry, intact, normal color. Absent: rash ED Course Vital Signs 08/23/20 20:09 Temperature 97.8 F Pulse Rate 66 Respiratory 28 H Rate Blood Pressure 107/58 O2 Sat by Pulse 96 Oximetry ED Medical Decision Making - Lab Data Result diagrams: 08/23/20 20:18 08/23/20 20:18 - Medical Decision Making Pt presents the emergency department complaining of back pain most consistent with musculoskeletal back Pain Most Consistent with Strain/Contusion. Differential Diagnosis Includes Lumbar Go Versus Musculoskeletal Spasm, Strain Versus Sciatica. No Back Pain Red Flags on History or Physical. Presentation Not Consistent with Malignancy, Fracture, Cauda Equina, Abdominal Aortic Aneurysm, Viscus Perforation, Pulmonary Embolism, Renal Colic, Pyelonephritis. Patient reports no B symptoms, trauma trauma, incontinence, saddle anesthesia, distal weakness, urinary symptoms and is a febrile. Critical care attestation.: If time is entered above; I have spent that time in minutes in the direct care of this critically ill patient, excluding procedure time. ED Disposition Clinical Impression: Back pain Disposition: TO HOME OR SELFCARE Is pt being admited?: No Does the pt Need Aspirin: No Condition: Stable Instructions: Acute Back Pain, Adult Prescriptions: methOCARBAMOL [Robaxin TAB] 500 mg PO Q6H #30 tablet Ketorolac [Toradol] 10 mg PO Q6H PRN #20 tablet PRN Reason: Pain Referrals: ELA VALLE MD [Primary Care Provider] - 3-5 Days
== END 2020-08-23 21:41 | disposition home or self-care (01) ==
LOC: ED 19:50
DX: M54.5 Low back pain (principal); F17.200 Nicotine dependence, unspecified, uncomplicated; Z79.899 Other long term (current) drug therapy; Z98.890 Other specified postprocedural states
CPT/HCPCS: 36415; 80053; 81001; 85025

== ENCOUNTER 2020-11-08 06:48 | Emergency (ER) | payer SELFPAY ==
[2020-11-08 07:00] VITALS: BP 101/61
--- NOTE | 2020-11-08 10:17 | Emergency Department Report ---
Abscess Boil HPI - HPI Chief Complaint: Skin/Abscess/Foreign Body Stated Complaint: LACERATION TO RING FINGER Time Seen by Provider: 11/08/20 10:16 Duration: >1 Week Location: Other Severity: Mild History: Yes Pain, Yes Purulent Drainage, No Fever, No Numbness, No Foreign Body, No Previous History, No Insect Bite HPI: Patient is a 45-year-old -[place] male that comes to the emergency room complaining of a callus on his finger that is cracked open and sore. 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 He denies any trauma to the finger. He is alert and oriented x4 no acute distress in triage. At 1 time I called for him and he was missing from the ER, assumed to have left the ER for couple hours. Then he returned to the desk. He is adamant about getting a work restriction note. Home Medications: Previous Rx's Medication Instructions Recorded Last Taken Type HYDROcodone/APAP 5-325 [[place] 1 - 2 each PO Q4HR PRN #30 tablet 04/09/19 Unknown Rx 5/325] levoFLOXacin [Levaquin TAB] 500 mg PO QDAY #5 tablet 04/09/19 Unknown Rx Ketorolac [Toradol] 10 mg PO Q6H PRN #20 tablet 08/23/20 Unknown Rx methOCARBAMOL [Robaxin TAB] 500 mg PO Q6H #30 tablet 08/23/20 Unknown Rx Sulfamethoxazole/Trimethoprim 1 each PO BID #10 tablet 11/08/20 Unknown Rx [Bactrim DS TAB] Allergies/Adverse Reactions: Allergies Allergy/AdvReac Type Severity Reaction Status Date / Time No Known Allergies Allergy Verified 01/09/20 14:00 ED Review of Systems ROS: Stated complaint: LACERATION TO RING FINGER Other details as noted in HPI Comment: All other systems reviewed and negative ED Past Medical Hx - Past Medical History Previous Medical History?: No - Surgical History Past Surgical History?: Yes Additional Surgical History: " BLADDER REMOVED." - Family History Family history: no significant - Social History Smoking Status: Current Every Day Smoker Substance Use Type: None - Medications Home Medications: Home Medications Medication Instructions Recorded Confirmed Last Taken Type HYDROcodone/APAP 5-325 [[place] 1 - 2 each PO Q4HR PRN #30 tablet 04/09/19 Unknown Rx 5/325] levoFLOXacin [Levaquin TAB] 500 mg PO QDAY #5 tablet 04/09/19 Unknown Rx Ketorolac [Toradol] 10 mg PO Q6H PRN #20 tablet 08/23/20 Unknown Rx methOCARBAMOL [Robaxin TAB] 500 mg PO Q6H #30 tablet 08/23/20 Unknown Rx Sulfamethoxazole/Trimethoprim 1 each PO BID #10 tablet 11/08/20 Unknown Rx [Bactrim DS TAB] ED Abscess Boil Physical Exam - Exam General: Vital signs noted. No distress. Alert and acting appropriately. Front/Back of Body, Lg (Color): 1 - Fourth digit proximal joint, callus that is open, with malodorous drainage. Distal rapid cap refill intact. Full range of motion. Exam: Yes Tenderness, Yes Normal Neurologic Exam, Yes Normal Circulation, No F luctuance, No Surrounding Cellulites/Erythema, No Lymphangitis, No Crepitation, No Heart Murmur ED Course Vital Signs 11/08/20 06:53 Temperature 98.4 F Pulse Rate 76 Respiratory 16 Rate Blood Pressure 101/61 O2 Sat by Pulse 97 Oximetry Critical care attestation.: If time is entered above; I have spent that time in minutes in the direct care of this critically ill patient, excluding procedure time. ED Medical Decision Making - Medical Decision Making Patient has an infection of his finger after callus busted open. He has full range of motion is neurovascularly intact. Wound was cleaned and dressed Vital Signs 11/08/20 06:53 Temperature 98.4 F Pulse Rate 76 Respiratory 16 Rate Blood Pressure 101/61 O2 Sat by Pulse 97 Oximetry Patient being discharged home with discharge plan of care including follow-up, wound care and medications. He has been given a referral to PCP for his requested work accommodation. He was given a work note that he was in the ER today. Patient verbalizes understanding of discharge plan of care. However, on discharge he was angry ripped up his paperwork and left the ER. - Differential Diagnosis Cellulitis ED Disposition Clinical Impression: Cellulitis, finger Disposition: DC-01 TO HOME OR SELFCARE Is pt being admited?: No Does the pt Need Aspirin: No Condition: Stable Instructions: Cellulitis, Adult Additional Instructions: KEEP WOUND CLEAN AND DRY MED ORDERED TODAY TYLENOL OR MOTRIN FOR PAIN FOLLOW UP WITH PCP REFERRAL BELOW Prescriptions: Sulfamethoxazole/Trimethoprim [Bactrim DS TAB] 1 each PO BID #10 tablet Referrals: PALAK YOUNGER MD [Staff Physician] - 3-5 Days Forms: Work/School Release Form(ED) Time of Disposition: 10:18
== END 2020-11-08 10:30 | disposition home or self-care (01) ==
LOC: ED 06:48
DX: L03.011 Cellulitis of right finger (principal); F17.200 Nicotine dependence, unspecified, uncomplicated; Z79.899 Other long term (current) drug therapy
CPT/HCPCS: 99282